=== PATIENT | female | born 1995 | race Caucasian/White ===

== ENCOUNTER → 2016-09-10 | Outpatient (CLI) | payer BC ==
--- NOTE | 2016-09-10 19:28 | CONS ---
DATE OF CONSULTATION: 09/10/2016 CONSULTATION/NEW PATIENT EVALUATION A 20-year-old lady who has been evaluated in the Sleep Center for significant excessive daytime sleepiness, snoring, witnessed episodes of stopped breathing during the sleep. HISTORY OF PRESENT ILLNESS/SLEEP-WAKE EVALUATION: SLEEP SCHEDULE: Patient's usual sleep schedule from around 2:00 a.m. until 1:00 p.m. FALLING ASLEEP: No problem with falling asleep. No TV in bedroom. DURING SLEEP: Patient preferred to sleep on the stomach position. She has snoring, witnessed episodes of stopped breathing during the sleep. About 2 years ago patient was diagnosed with obstructive sleep apnea, was recommended to use CPAP but because difficulties related to the mask she took mask off and basically did not use CPAP for more than one year. DURING THE DAY/WAKE STATE: Presently, she wakes up from sleep with a dry mouth, sleeptalking, in the morning she wakes up tired, has difficulties to pay attention, falling asleep during the day, has problems with memory, concentration, and irritability, depression, anxiety. If she takes naps she could see dreams during the naps. Positive history of muscle weakness as a reaction on strong laughing. Patient increased her weight around 40 pounds since previous testing about 2 years ago. Daniel Sleepiness Scale is in very high range, 19. PAST MEDICAL HISTORY: Positive for allergy, asthma. PAST SURGICAL HISTORY: Adenoidectomy. MEDICATIONS: Zantac, Flovent, ProAir. SOCIAL HISTORY: Negative for smoking. Alcohol consumption is very rarely. FAMILY HISTORY: Hypertension, heart problems, stroke, fibromyalgia, arthritis, asthma, sleep apnea, snoring, headaches, cancer, insomnia, diabetes, acid reflux, nasal polyps, mental illness, restless legs. REVIEW OF SYSTEMS: Patient a long sleeper, has to sleep around 11 to 12 hours and still feels tired and sleepy during the day. No fevers. No double vision. No recent chest pain. No shortness of breath. No abdominal pain. No bleeding episodes. No blood in urine. No seizure episodes. PHYSICAL EXAMINATION: GENERAL: During physical exam a 20-year-old lady without distress. VITAL SIGNS: BP 112/72, HR 82, RR 16. Height 65-1/2, weight 224.6. BMI 36.7. Neck 16 inches in circumference. Temp is 99.1. Oxygen saturation at room air 100%. HEENT: PERRLA, EOMI. Evaluation of oropharynx showed moderately low position of soft palate, big tonsils, significant restriction of nasal breathing on the left side. NECK: Supple. No JVD. Thyroid is not palpable. LUNGS: Clear to percussion and to auscultation. Good air exchange. No wheezing or rhonchi. HEART: S1, S2 regular. No murmurs, gallops or rubs. ABDOMEN: Obese. Soft and nontender. Bowel sounds are present. No organomegaly appreciated. EXTREMITIES: No clubbing or cyanosis. EXTENSION EDGER: Awake, alert, and oriented x3. Cranial nerves 2 to 7 intact. There is no fasciculation or atrophy noted. No focal deficits observed. IMPRESSION: 1. Snoring, witnessed episodes of stopped breathing during sleep. History of obstructive sleep apnea in the past, big tonsils, obstructive sleep apnea/hypopnea syndrome. 2. Significant sleepiness. Daniel Sleepiness Scale increased to 12. Patient sleeps for 11 or 12 hours per night, positive history of cataplexy, positive history of dreaming during naps. In differential diagnoses include idiopathic hypersomnia and narcolepsy. 3. Sleep delay syndrome. 4. Allergy. 5. Asthma. 6. Status post adenoidectomy. PLAN: 1. Polysomnography for evaluation of patient's breathing during sleep. 2. CPAP/BiPAP titration if sleep study confirms obstructive sleep apnea-hypopnea syndrome. 3. Preferable position during sleep on the side. 4. No driving if patient feels any sleepiness. Patient is aware of civil and criminal liability for unsafe driving. 5. I will see patient for follow-up visit to explain results of the testing and following plan. 6. After patient's respiratory abnormalities are under control, she may need multiple sleep latency test if she continues to have symptoms of excessive daytime sleepiness for diagnosis of hypersomnia. 7. Will try to get results of previous sleep studies which patient had about 2 years ago. Thank you very much for referring this patient for consultation. Sincerely, Colton Moscoso MD, PhD, FAASM. Diplomat of [place] [employer], Sleep Medicine Board by [place] [employer] [place] [employer] Shoe Associate of [facility] [place]
== END | disposition home or self-care (01) ==
LOC: SLEEP 14:33
PROVIDERS: ATTEND Internal Medicine
DX: G47.33 Obstructive sleep apnea (adult) (pediatric) (principal); G47.411 Narcolepsy with cataplexy; G47.10 Hypersomnia, unspecified; G47.21 Circadian rhythm sleep disorder, delayed sleep phase type; Z91.09 Other allergy status, other than to drugs and biological substances; J45.909 Unspecified asthma, uncomplicated; Z98.890 Other specified postprocedural states; Z79.899 Other long term (current) drug therapy
CPT/HCPCS: 99211

== ENCOUNTER → 2016-12-17 | Outpatient (CLI) | payer BC ==
--- NOTE | 2016-12-17 15:21 | PN ---
DATE OF SERVICE: 12/17/2016 A 21-year-old lady who has been followed in the Sleep Center to discuss results of polysomnogram. I discussed results of polysomnogram with the patient in detail. Total apnea-hypopnea index is 3.4 with lowest oxygen level 90.0%. Apnea-hypopnea index in REM sleep 5.9. EMG showed 30.5 periodic limb movements per hour but with only 1.6 microarousals per hour. Patient admitted that she is kicking at night and sometimes she calls words out. She has positive history of plasma donation, and her menstrual periods sometimes heavy which indicates possibility of losing blood and subsequently iron, which may increase risk for periodic limb movements. Patient continued to have symptoms of excessive daytime sleepiness. [place] Sleepiness Scale is 15. Patient has positive history of hypnagogical hallucinations or cataplexy which indicates possibility of narcolepsy. Present medications are Zantac, Flovent, ProAir. During physical exam, patient in no distress. BP 119/61, HR 86, RR 12. Temperature 98.1. Oxygen saturation at room air 97%. OROPHARYNX: Moderately low position of soft palate. . NECK: Supple. No JVD, Thyroid is not palpable. LUNGS: Clear to percussion and to auscultation. Good air exchange. No wheezing or rhonchi. HEART: S1, S2 regular. No murmurs, gallops, or rubs. ABDOMEN: Soft and nontender. Bowel sounds are present. No organomegaly appreciated. FOAM CASTER: Awake, alert, and oriented x3. Cranial nerves 2 to 7 intact. There is no fasciculation or atrophy noted. No focal deficits observed. IMPRESSION: 1. No significant respiratory abnormalities during the sleep following today's criteria with 4% oxygen desaturation criteria scoring for hypopneas. 2. Mild periodic limb movements have been documented during the sleep study. 3. Patient continued to have symptoms of significant excessive daytime sleepiness with positive history of hypnagogical hallucinations and possible cataplexy. 4. Asthma. 5. Allergies. 6. Status post adenoidectomy. 7. Irregular menstrual periods with sometimes heavy blood. 8. Loud snoring has been documented. 9. Obesity; body mass index 36. PLAN: 1. Sleep hygiene with regular time in bed for at least 8-9 hours. 2. Daytime naps permitted. 3. Iron profile, including ferritin level because low level of iron may increase risk for periodic limb movements. 4. Will try patient on small doses of dopamine for periodic limb movements to evaluate response on that treatment. 5. Will schedule patient for polysomnogram following multiple sleep latency test for objective evaluation for sleepiness for possible narcolepsy. 6. No driving if feeling any sleepiness. 7. Preferable position during the sleep on the side. 8. Watching and losing weight. Thank you very much for allowing me to participate in the management of your patient. Sincerely, Colton Moscoso MD, PhD, FAASM Diplomat of [place] Board [employer] Sleep Medicine, Sleep Medicine Board by [place] [employer] Specialities [employer] Board of Internal Medicine Drapery And Upholstery Measurer of [facility] [place]
== END | disposition home or self-care (01) ==
LOC: SLEEP 10:10
PROVIDERS: ATTEND Internal Medicine
DX: G47.10 Hypersomnia, unspecified (principal); G47.61 Periodic limb movement disorder; J45.909 Unspecified asthma, uncomplicated; N92.6 Irregular menstruation, unspecified; E66.9 Obesity, unspecified; Z68.36 Body mass index [BMI] 36.0-36.9, adult; Z90.89 Acquired absence of other organs; Z79.899 Other long term (current) drug therapy

== ENCOUNTER → 2017-03-04 | Outpatient (CLI) | payer BC ==
--- NOTE | 2017-03-04 23:26 | PN ---
DATE OF SERVICE: 03/04/2017 This patient is a 21-year-old lady who has been followed in the sleep center to discuss results of her sleep study and plan of treatment. I discussed results of the sleep study with the patient in detail. Sleep study did not show any abnormalities of respiration during sleep. Apnea/hypopnea index is 1.9 with lowest oxygen level 86%. EMG did not show significant periodic limb movements. On the following day, multiple sleep test was done and showed extremely short sleep latency; average sleep latency was 2.7 minutes with 1 sleep-onset REM period. That means that the sleep study confirmed pathological sleepiness. [place] Sleepiness Scale today is 18. Patient continues to feel sleepiness during the day. PRESENT MEDICATIONS: 1. Zantac. 2. Flovent. 3. ProAir. During physical exam, patient is in no distress. BP 124/88, HR 97, RR 16, temperature 97.9. Oxygen saturation at room air 98%. HEENT: PERRLA. EOMI. NECK: Supple. No JVD. Thyroid is not palpable. LUNGS: Clear to percussion and to auscultation. Good air exchange. No wheezing or rhonchi. HEART: S1, S2. ABDOMEN: Soft, non-tender. EXTREMITIES: No clubbing or cyanosis. RAW STOCK MACHINE LOADER: Awake, alert and oriented x3. Cranial nerves 2 to 7 intact. There is no fasciculation or atrophy noted. No focal deficits observed. IMPRESSION: 1. No respiratory abnormalities by results of polysomnogram. 2. Pathological sleepiness by results of MSLT with one sleep-onset REM period, most probably an indication of narcolepsy. Patient also has a history of hypnagogic hallucinations and cataplexy. 3. Asthma. 4. Allergies. 5. Status post adenoidectomy. 6. Irregular menstrual periods. 7. Snoring. PLAN: 1. I will start the patient on treatment with modafinil. Dose will be adjusted for correction of patient's sleepiness during the day. 2. Patient has history of cataplexy, but the episodes are very rare, and this does not create any problem for the patient at the present time; no need for treatment at present. 3. HLA profile for narcolepsy. 4. No driving if feeling any sleepiness. 5. I discussed side effects of modafinil with the patient. She should stop medication if there is any question about possible . 6. Sleep hygiene with regular time in bed for at least 8 hours. 7. Daytime naps permitted. Thank you very much for allowing me to participate in the management of your patient. Sincerely, Colton Moscoso MD, PhD, FAASM Diplomat of [place] Board of Sleep Medicine Sleep Medicine Board by [place] [employer] Specialities [place] Board of Internal Medicine Senior Vice President And Chief Information Officer of [facility] [place]
== END | disposition home or self-care (01) ==
LOC: SLEEP 13:19
PROVIDERS: ATTEND Internal Medicine
DX: G47.10 Hypersomnia, unspecified (principal); T78.40XA Allergy, unspecified, initial encounter; J45.909 Unspecified asthma, uncomplicated; R06.83 Snoring; N92.6 Irregular menstruation, unspecified; Z98.890 Other specified postprocedural states

== ENCOUNTER → 2017-05-27 | Outpatient (CLI) | payer BC ==
--- NOTE | 2017-05-27 14:52 | PN ---
PROGRESS NOTE DATE OF SERVICE: 05/27/2017 HISTORY: 21-year-old lady has been followed in the sleep center for treatment of narcolepsy. Patient was recommended to start modafinil, but because of insurance problem, we had to switch it to Adderall. Presently, she is taking Adderall 10 mg in the morning after awakenings around 9:00 a.m. and also around 2:30 pm. With this regimen, she feels okay during the daytime, but in the evening around 7:00 pm she become very sleepy. [place] Sleepiness Scale today is 11, during the previous visit, it was 18. MEDICATIONS: Flovent, ProAir, bupropion, Venlafaxine, control pill . PHYSICAL EXAM: Patient in no distress. BP 116/88, HR 104, RR 16, height 5 feet 6 inches, weight 204, BMI 32.9, temp 98.0, oxygen saturation room air 99. HEENT PERRLA, EOMI, evaluation of oropharynx showed tongue protrudes midline. Moderately low to normal position of the soft palate. Neck Supple, no JVD. Thyroid is not palpable. LUNGS Clear to percussion and to auscultation. Good air exchange. No wheezing or rhonchi. HEART S1, S2 regular. No murmurs, gallops, or rubs. ABDOMEN: Slightly obese. Soft and nontender. Bowel sounds are present. No organomegaly appreciated. EXTREMITIES No clubbing or cyanosis. REDIPPER Awake, alert, and oriented X3. Cranial nerves 2 to 7 intact. There is no fasciculation or atrophy. noted. No focal deficits observed. IMPRESSION: 1. Narcolepsy by results of MSLT. Mean sleep latency 2.7 minutes with 1 sleep onset REM period. The daytime sleepiness significantly decreased on treatment with Adderall. The patient still has sleepiness in the evening. 2. Asthma. 3. Allergies. 4. Status post adenoidectomy. 5. Snoring. 6. Depression. 7. Anxiety. PLAN: 1. I will increase dose of Adderall to additional tablets 10 mg subsequently patient will take 1 tablet at 9:00 am, 1 tablet at 1:00 p.m. and 1 tablet at 5:00 pm. 2. Sleep hygiene with time in bed for at least 8 hours. 3. No driving if feeling sleepiness. 4. Daytime naps permitted. Thank you very much for allowing me to participate in management of your patient. Sincerely, Colton Moscoso MD, PhD, FAASM Diplomat of [place] [employer] Specialties [employer] Board of Internal Medicine Senior Clinical Consultant of [facility] Mitt[place] MMISABEL / JUAN DIEGO: [id number] /
== END ==
LOC: SLEEP 13:33
PROVIDERS: ATTEND Internal Medicine
DX: G47.419 Narcolepsy without cataplexy (principal); J45.909 Unspecified asthma, uncomplicated; F41.9 Anxiety disorder, unspecified; F32.9 Major depressive disorder, single episode, unspecified; Z90.89 Acquired absence of other organs; Z79.899 Other long term (current) drug therapy

== ENCOUNTER 2017-06-07 20:48 | Emergency (ER) | payer BC ==
[2017-06-07 21:04] VITALS: BP 137/78; PULSE 100; RESP 20; TEMP 97.4
[2017-06-07] MEDS ORDERED: diphenhydrAMINE 25 MG CAP PO STA (21:16)
[2017-06-07] MEDS ORDERED: predniSONE 50 MG TAB PO STA (21:16)
--- NOTE | 2017-06-07 21:33 | ED ---
Allergic Reaction HPI - General Chief complaint: Allergic Reaction Stated complaint: allergic reaction/food Time Seen by Provider: 06/07/17 21:05 Source: patient, family, RN notes reviewed Mode of arrival: ambulatory Limitations: no limitations - History of Present Illness Initial Comments: This is a 21-year-old female who presents to the emergency department with chief complaint of allergic reaction. Patient states that she believes she has an allergy to milk and milk products however has not been formally tested. Patient states that at approximately 8 PM this evening she ate a bag of Chex mix. She developed some labored breathing, reviewed the ingredients on the Chex mix bag and noticed that milk was in an ingredient. Currently patient states that her breathing has improved. She states she does not feel like her throat is closing up. She also complains of some mild nausea. Denies fever, chills, chest pain, abdominal pain, vomiting, constipation or diarrhea, dysuria or hematuria, numbness or tingling, headache or vision changes. - Related Data Previous Rx's Medication Instructions Recorded predniSONE 20 mg PO DAILY #4 tab 06/07/17 Allergies Allergy/AdvReac Type Severity Reaction Status Date / Time No Known Allergies Allergy Verified 06/07/17 21:04 Review of Systems ROS Statement: Those systems with pertinent positive or pertinent negative responses have been documented in the HPI. ROS Other: All systems not noted in ROS Statement are negative. Past Medical History Additional Past Medical History / Comment(s): narcolepsy, depression, anxiety History of Any Multi-Drug Resistant Organisms: None Reported Past Surgical History: Adenoidectomy Past Psychological History: Anxiety, Depression Smoking Status: Never smoker Past Alcohol Use History: Occasional Past Drug Use History: None Reported General Exam - General Exam Comments Initial Comments: General: Awake and alert, well-developed; in no apparent distress. Patient lying on ED stretcher. Non-labored breathing. HEENT: Head atraumatic, normocephalic. Pupils are equal, round and reactive to light. Extraocular movements intact. Oropharynx moist without erythema or exudate. Neck: Supple. Normal ROM. Cardiovascular: Regular rate and rhythm. No murmurs, rubs or gallops. Chest symmetrical. Respiratory: Lungs clear to auscultation bilaterally. No wheezes, rales or rhonchi. Normal respiratory effort with no use of accessory muscles. Musculoskeletal: Normal ROM, no tenderness bilateral upper and lower extremities. Ambulating normally. Skin: [place], warm and dry without rashes or lesions. Neurological: Alert and oriented x3. CN II-XII grossly intact. Speech is fluent and answers are appropriate. No focal neuro deficits. Psychiatric: Normal mood and affect. No overt signs of depression or anxiety noted. Limitations: no limitations Course Vital Signs 06/07/17 21:00 Temperature 97.4 F L Pulse Rate 100 Respiratory 20 Rate Blood Pressure 137/78 O2 Sat by Pulse 100 Oximetry Medical Decision Making - Medical Decision Making This is a 21-year-old female who presents to the emergency department with chief complaint of allergic reaction. On presentation and at discharge, patient 's vital signs are stable. She has non-labored breathing and is in no acute distress. Patient states she may have an allergy to milk and milk products but was never tested. She states that she ate food that contained milk prior to arrival and developed some labored breathing. While in the emergency department , she received steroids and Benadryl. She reports improvement in her symptoms. Patient will be discharged home with a prescription for steroids. Recommended follow up with her primary care physician in 1-2 days. She is in agreement with plan and voiced understanding. All questions were answered. Disposition Clinical Impression: Allergic reaction Disposition: HOME SELF-CARE Condition: Good Instructions: Food Allergy (ED), General Allergic Reaction (ED) Additional Instructions: Please take medications as prescribed. Please follow up with primary care provider within 1-2 days. Return to emergency department if symptoms should worsen or any concerns arise. Prescriptions: predniSONE 20 mg PO DAILY #4 tab Referrals: Vinod Reyes MD [Primary Care Provider] - 1-2 days Time of Disposition: 21:32
== END 2017-06-07 21:38 | disposition home or self-care (01) ==
LOC: EC 20:48
DX: R06.4 Hyperventilation (principal); T78.1XXA Other adverse food reactions, not elsewhere classified, initial encounter
CPT/HCPCS: 99283; J7512

== ENCOUNTER 2017-06-08 00:05 | Emergency (ER) | payer BC ==
[2017-06-08] MEDS ORDERED: MAG HYDROX/AL HYDROX/SIMETH 30 ML, HYOSCYAMINE ELIXIR 10 ML, CIMETIDINE HCL 300 MG PO STA ×3 (00:27)
[2017-06-08] MEDS ORDERED: ONDANSETRON ODT 4 MG TAB PO STA (00:27)
--- NOTE | 2017-06-08 00:38 | ED ---
General Adult HPI - General Chief complaint: Abdominal Pain Stated complaint: abd pain Time Seen by Provider: 06/08/17 00:21 Source: patient, RN notes reviewed Mode of arrival: ambulatory Limitations: no limitations - History of Present Illness Initial comments: 21-year-old female presents to the emergency department with a chief complaint abdominal pain. She was seen here earlier for some throat irritation and swelling. She states she has undergone pain that time. She is ALLERGIC to soy and dairy she rechecks makes that she believes had this in it. She states that when she got home she had some pain and 1 episode of diarrhea so she thought that she should be seen. She states she normally does have some GI upset when she eats so we are dairy but this had a little bit more pain than normal so she wanted to make sure everything was okay. She states she hasn't had a fever or chills. She states her pain has subsided at this time and she is starting to feel better. Patient just wanted to check that everything was okay. Patient states that she is not currently having any other symptoms at this time. Patient denies any recent fever, chills, shortness of breath, chest pain, back pain, numbness or tingling, dysuria or hematuria, constipation, headaches or visual changes, or any other current symptoms. - Related Data Previous Rx's Medication Instructions Recorded predniSONE 20 mg PO DAILY #4 tab 06/07/17 Allergies Allergy/AdvReac Type Severity Reaction Status Date / Time No Known Allergies Allergy Verified 06/08/17 00:16 Review of Systems ROS Statement: Those systems with pertinent positive or pertinent negative responses have been documented in the HPI. ROS Other: All systems not noted in ROS Statement are negative. Past Medical History Additional Past Medical History / Comment(s): narcolepsy, depression, anxiety History of Any Multi-Drug Resistant Organisms: None Reported Past Surgical History: Adenoidectomy Past Psychological History: Anxiety, Depression Smoking Status: Never smoker Past Alcohol Use History: Occasional Past Drug Use History: None Reported General Exam Limitations: no limitations General appearance: alert, in no apparent distress ENT exam: Present: normal exam, mucous membranes moist Neck exam: Present: normal inspection. Absent: tenderness, meningismus, lymphadenopathy Respiratory exam: Present: normal lung sounds bilaterally. Absent: respiratory distress, wheezes, rales, rhonchi, stridor Cardiovascular Exam: Present: regular rate, normal rhythm, normal heart sounds. Absent: systolic murmur, diastolic murmur, rubs, gallop, clicks GI/Abdominal exam: Present: soft, normal bowel sounds. Absent: distended, tenderness, guarding, rebound, rigid Neurological exam: Present: alert, oriented X3 Psychiatric exam: Present: normal affect, normal mood Skin exam: Present: warm, dry, intact, normal color. Absent: rash Course Vital Signs 06/08/17 00:11 Temperature 98.2 F Pulse Rate 103 H Respiratory 20 Rate Blood Pressure 143/95 O2 Sat by Pulse 97 Oximetry Medical Decision Making - Medical Decision Making 20-year-old female presents for abdominal pain diarrhea following ingestion of soy. This is a typical reaction that she get she just was concerned maybe the steroids were making it worse. At this time abdomen is soft and nontender to palpation. X-rays reviewed and negative. GI cocktail did help symptoms. We discussed continuing medications that she was prescribed. We did discuss return parameters and follow-up and all questions. Patient stated that she understood and she is agreeable with this plan. All questions have been answered. She will be discharged with this time. - Lab Data Lab Results 06/08/17 Range/Units 01:08 Urine HCG, Qual Not Detected (Not Detectd) - Radiology Data Radiology results: report reviewed, image reviewed Disposition Clinical Impression: Allergic reaction, Abdominal pain Disposition: HOME SELF-CARE Condition: Stable Instructions: Abdominal Pain (ED) Additional Instructions: Please use medication as discussed. Please follow up with family doctor if symptoms have not improved over the next two days. Please return to the emergency room if your symptoms increase or worsen or for any other concerns. Referrals: Vinod Reyes MD [Primary Care Provider] - 1-2 days Time of Disposition: 01:42
--- NOTE | 2017-06-08 01:34 | XR ---
EXAMINATION TYPE: XR abdomen 2V DATE OF EXAM: 06/08/2017 COMPARISON: NONE HISTORY: Abdominal pain TECHNIQUE: 3 views FINDINGS: The bowel gas pattern is normal. There is no sign of intestinal obstruction or pneumoperito neum. Fecal pattern is normal. Lung bases are clear. There are no pathologic calcifications. IMPRESSION: Nonacute abdomen.
[2017-06-08 01:49] VITALS: BP 121/65; PULSE 88; RESP 18; TEMP 98.5
== END 2017-06-08 01:49 | disposition home or self-care (01) ==
LOC: EC 00:05
DX: T78.1XXA Other adverse food reactions, not elsewhere classified, initial encounter (principal); R19.7 Diarrhea, unspecified; R10.9 Unspecified abdominal pain
CPT/HCPCS: 74020; 81025; 99284

== ENCOUNTER → 2017-08-12 | Outpatient (CLI) | payer BC ==
--- NOTE | 2017-08-12 16:20 | PN ---
PROGRESS NOTE DATE OF SERVICE: 08/12/2017 21-year-old lady has been followed in Sleep Center for treatment of narcolepsy. Presently, she is on treatment with Adderall 10 mg at 9:00 am, 1:00 p.m. and 5:00 pm. With this regimen, she feels okay in the morning hours but early afternoon hours she still feels tired and significantly sleepy. [place] Sleepiness Scale significantly increased to 15. Other medications: , omeprazole, ibuprofen, famotidine, Flovent, Judy, . PHYSICAL EXAM: GENERAL Patient in no distress. VITAL SIGNS BP 126/88 on the right arm, HR 107, RR 16, height 5 feet 5-1/4, weight 188.8, temp 97.4, oxygen saturation room air 99%. HEENT PERRLA, EOMI, evaluation of oropharynx showed moderately low position of soft palate. NECK Supple, no JVD. Thyroid is not palpable. LUNGS Clear to percussion and to auscultation. Good air exchange. No wheezing or rhonchi. HEART S1, S2 regular. No murmurs, gallops, or rubs. ABDOMEN Slightly obese. Soft and nontender. Bowel sounds are present. No organomegaly appreciated. EXTREMITIES No clubbing or cyanosis. GANG BOSS Awake, alert, and oriented X3. Cranial nerves 2 to 7 intact. There is no fasciculation or atrophy. noted. No focal deficits observed. IMPRESSION: 1. Narcolepsy. Patient improved her alertness on treatment with Adderall, but still has sleepiness in afternoon time. Her heart rate increased to 107 in the office today. 2. Asthma. 3. Allergies. 4. Status post adenoidectomy. 5. Depression. 6. Anxiety. 7. Snoring. PLAN: 1. We will increase the dose of Adderall at 1:00 p.m. to 15-20 mg. Other doses we will continue the same regimen. 2. The patient will continue to check her heart rate and blood pressure. 3. Because of increasing heart rate and continued sleepiness, she could be candidate in the future to add modafinil or armodafinil to the treatment. 4. Sleep hygiene with regular time in bed for at least 8 hours. 5. No driving if feeling sleepiness. Thank you very much for allowing me to participate management of your patient. Sincerely, Colton Moscoso MD, PhD, FAASM Diplomat of [place] [employer] Special[employer] [place] Board of Internal Medicine Paper Gluing Operator of [facility] [place] ADOLFO / JUAN DIEGO: [id number] /
== END | disposition home or self-care (01) ==
LOC: SLEEP 14:14
PROVIDERS: ATTEND Internal Medicine
DX: G47.419 Narcolepsy without cataplexy (principal); R06.83 Snoring; T78.40XD Allergy, unspecified, subsequent encounter; F32.9 Major depressive disorder, single episode, unspecified; F41.9 Anxiety disorder, unspecified; J45.909 Unspecified asthma, uncomplicated; Z79.1 Long term (current) use of non-steroidal anti-inflammatories (NSAID); Z79.899 Other long term (current) drug therapy; Z90.89 Acquired absence of other organs; Z98.890 Other specified postprocedural states

== ENCOUNTER → 2018-01-18 | Outpatient (CLI) | payer BC ==
--- NOTE | 2018-01-19 07:04 | US ---
EXAMINATION TYPE: US pelvic complete DATE OF EXAM: 01/18/2018 COMPARISON: NONE CLINICAL HISTORY: 22-year-old female R10.2 Pelvic and perineal pain. Pain TECHNIQUE: Transabdominal (TA). Date of LMP: 12/29/2017 FINDINGS: EXAM MEASUREMENTS: Uterus: 7.0 x 3.1 x 4.7 cm Endometrial Stripe: 0.8 cm Right Ovary: 3.6 x 1.5 x 1.8 cm Left Ovary: 3.3 x 2.0 x 1.5 cm 1. Uterus: Anteverted wnl 2. Endometrium: wnl 3. Right Ovary: wnl 4. Left Ovary: wnl 5. Bilateral Adnexa: wnl 6. Posterior cul-de-sac: No free fluid IMPRESSION: Unremarkable transabdominal sonographic examination of the pelvis.
== END | disposition home or self-care (01) ==
LOC: RADUSMAIN 17:58
PROVIDERS: ATTEND Family Medicine
DX: R10.2 Pelvic and perineal pain (principal)
CPT/HCPCS: 76856

== ENCOUNTER → 2018-01-20 | Outpatient (CLI) | payer BC ==
--- NOTE | 2018-01-20 16:36 | PN ---
PROGRESS NOTE DATE OF SERVICE: 01/20/2018 This patient is a 22-year-old lady who has been followed in the sleep center for treatment of narcolepsy. At present the patient is on treatment with Adderall 10 mg 3 times a day. With this regimen, she continues to feel sleepiness after noon. We tried to increase her dose in the middle of the day to 20 mg, but for some reason insurance did not cover that. [place] Sleepiness Scale today is 14, which is significantly above normal range. Patient's sleep schedule is from 11 p.m. to 6:30 a.m. OTHER MEDICATIONS: 1. Omeprazole. 2. Ibuprofen. 3. Famotidine. 4. Flovent. 5. Judy. PHYSICAL EXAMINATION: GENERAL A pleasant lady without distress. VITAL SIGNS: BP 116/91, heart rate 100, RR 16, height 5 feet 5-1/4 inches, weight 183.8, BMI 30.2, temperature 98.3, oxygen saturation at room air 100%. HEENT: PERRLA, EOMI. Evaluation of oropharynx showed tongue protrudes midline; low position of soft palate. NECK: Supple. No JVD. Thyroid is not palpable. LUNGS: Clear to percussion and to auscultation. Good air exchange. No wheezing or rhonchi. HEART: S1, S2 regular. No murmurs, gallops or rubs. ABDOMEN: Soft and nontender. Bowel sounds are present. No organomegaly appreciated. EXTREMITIES : No clubbing or cyanosis. SOLAR SALES REP: Awake, alert, and oriented X3. Cranial nerves 2 to 7 intact. There is no fasciculation or atrophy. noted. No focal deficits observed. IMPRESSION: 1. Narcolepsy, improved on treatment with Adderall but not fully normalized. Increased heart rate on Adderall. 2. Asthma. 3. Allergies. 4. Depression. 5. Status post adenoidectomy. 6. History of anxiety. 7. Snoring. PLAN: 1. Patient will continue to take Adderall. 2. Patient will be started on treatment with modafinil. We will adjust dose until getting therapeutic level. 3. Sleep hygiene with regular time in bed for at least 8 hours. 4. No driving if feeling any sleepiness. 5. Daytime naps permitted. Thank you very much for allowing me to participate in the management of your patient. Sincerely, Colton Moscoso MD, PhD, FAASM Diplomat of [employer] Juvenile Justice Specialist of [facility] [place] MMISABEL / JUAN DIEGO: [id number] /
== END | disposition home or self-care (01) ==
LOC: SLEEP 15:05
PROVIDERS: ATTEND Internal Medicine
DX: G47.419 Narcolepsy without cataplexy (principal); J45.909 Unspecified asthma, uncomplicated; T78.40XA Allergy, unspecified, initial encounter; F32.9 Major depressive disorder, single episode, unspecified; F41.9 Anxiety disorder, unspecified; Z90.89 Acquired absence of other organs; Z79.1 Long term (current) use of non-steroidal anti-inflammatories (NSAID); Z79.899 Other long term (current) drug therapy

== ENCOUNTER → 2018-03-29 | Outpatient (CLI) | payer BC ==
--- NOTE | 2018-03-29 10:30 | US ---
EXAMINATION TYPE: US venous doppler duplex UE RT DATE OF EXAM: 03/29/2018 COMPARISON: NONE CLINICAL HISTORY: I82.621 Acute embolism and thrombosis of deep vein. Right arm pain and bruising SIDE PERFORMED: Right Grayscale, color doppler, spectral doppler imaging performed of the deep veins of the right upper ext remity. Visualized portions of the right internal jugular vein, subclavian vein, axillary vein, brach ial veins, basilic vein, cephalic vein, ulnar and radial veins are compressible and show no abnormal luminal echo, there is color flow present. Right Arm: Negative for DVT No abnormality visualized at the patient's area of pain . There is normal flow, compressibility and vascular waveforms. IMPRESSION: No evident deep venous thrombosis of the right upper extremity.
[2018-03-29 10:55] LABS: Basophils % (A) 1 %; Eosinophils # (A) 0.2 k/uL (0-0.7); Eosinophils % (A) 4 %; HCT 43.4 % (34.0-46.0); Lymphocytes # (A) 1.5 k/uL (1.0-4.8); Lymphocytes % (A) 30 %; MCH 31.1 pg (25.0-35.0); MCHC 32.2 g/dL (31.0-37.0); MCV 96.7 fL (80.0-100.0); Mean Platelet Volume 6.7; Monocytes # (A) 0.2 k/uL (0-1.0); Monocytes % (A) 4 %; Neutrophils # (A) 2.9 k/uL (1.3-7.7); Neutrophils % (A) 60 %; Platelet Count 283 k/uL (150-450); RBC 4.48 m/uL (3.80-5.40); RDW 12.6 % (11.5-15.5); WBC 4.9 k/uL (3.8-10.6)
== END | disposition home or self-care (01) ==
LOC: RADUSWWP 09:30
PROVIDERS: ATTEND Family Medicine
DX: I82.621 Acute embolism and thrombosis of deep veins of right upper extremity (principal)
CPT/HCPCS: 85025; 85379

== ENCOUNTER → 2018-04-28 | Outpatient (CLI) | payer BC ==
--- NOTE | 2018-04-28 12:36 | SFUN ---
SLEEP CENTER FOLLOW UP NOTE DATE OF SERVICE: 04/28/2018 This 22-year-old lady has been followed in the sleep center for treatment of narcolepsy. Presently, she is on Adderall 10 mg 3 times a day, but still feels sleepy with medication. After taking medication in the first couple hours, she feels better, but then she started to develop sleepiness again. [place] Sleepiness Scale today is 17. Her usual sleep schedule from around 11 p.m. until 6:30 a.m. MEDICATIONS: Adderall, omeprazole, ibuprofen, famotidine, Flovent, Judy PHYSICAL EXAMINATION: During physical exam, patient in no distress. VITAL SIGNS: BP 136/89, HR around 100, RR 16, height 5 feet 5-1/2 inches, weight 193.8, body mass index 31.6, temperature 98.4, oxygen saturation on room air 100%. HEENT: PERRLA, EOMI,. Oropharynx slightly low position of soft palate NECK: Supple, no JVD. Thyroid is not palpable. LUNGS: Clear to percussion and to auscultation. Good air exchange. No wheezing or rhonchi. HEART: S1, S2 regular. No murmurs, gallops, or rubs. ABDOMEN: Soft and nontender. Bowel sounds are present. No organomegaly appreciated. EXTREMITIES: No clubbing or cyanosis. TRAIN ELECTRONIC TECHNICIAN: Awake, alert, and oriented X3. Cranial nerves 2 to 7 intact. There is no fasciculation or atrophy. noted. No focal deficits observed. IMPRESSION: 1. Narcolepsy with cataplexy. Patient has reaction motion with weakness in her hands, improved but not fully normalized on treatment with Adderall. 2. Asthma. 3. Allergy. 4. Depression. 5. Status post adenoidectomy. 6. History of anxiety. 7. Snoring. PLAN: 1. We will change Adderall from a regular instant release medication to extended release medication with the same dose 2. 2. Patient will continue to take medication 10 mg at 7 a.m., noon and 4 p.m. 3. Sleep hygiene with regular time in bed for at least 7-1/2 hours. 4. No driving if feeling any sleepiness. 5. Daytime naps permitted. Thank you very much for allowing me to participate in management of your patient. Sincerely, Colton Moscoso MD, PhD, FAASM Diplomat of [employer] Board of Internal Medicine L Tacker of [facility] [place] MMISABEL / JUAN DIEGO: [id number] /
== END ==
LOC: SLEEP 10:29
PROVIDERS: ATTEND Internal Medicine
DX: G47.419 Narcolepsy without cataplexy (principal); J45.909 Unspecified asthma, uncomplicated; F32.9 Major depressive disorder, single episode, unspecified; F41.9 Anxiety disorder, unspecified; Z90.89 Acquired absence of other organs; Z79.899 Other long term (current) drug therapy; Z88.9 Allergy status to unspecified drugs, medicaments and biological substances; Z79.1 Long term (current) use of non-steroidal anti-inflammatories (NSAID)

== ENCOUNTER → 2018-07-21 | Outpatient (CLI) | payer BC ==
--- NOTE | 2018-07-21 11:37 | SFUN ---
SLEEP CENTER FOLLOW UP NOTE DATE OF SERVICE: 07/21/2018 A 22-year-old lady who has been followed in the Sleep Center for treatment of narcolepsy. Presently she is on treatment with Adderall XR 10 mg b.i.d. With this regimen, she feels better than with the regular Adderall but still feels sleepiness during the day. [place] Sleepiness Scale today increased to 16. Her usual sleep schedule from around 11 p.m. to 6:30 am. MEDICATIONS: Adderall, omeprazole, Ibuprofen, Famotidine, Flovent, Judy. PHYSICAL EXAM: Patient in no distress, BP 125/88, HR 104, RR 16, height 5, 6, weight 210.6, body mass index 33.8. Patient increased her weight since previous visit on around 17 pounds, temperature 98.7, oxygen saturation at room air 99%. OROPHARYNX: Slightly low position. Neck Supple, no JVD. Thyroid is not palpable. LUNGS Clear to percussion and to auscultation. Good air exchange. No wheezing or rhonchi. HEART S1, S2 regular. No murmurs, gallops, or rubs. ABDOMEN Soft and nontender. Bowel sounds are present. No organomegaly appreciated. EXTREMITIES No clubbing or cyanosis. MANAGER FINE Awake, alert, and oriented X3. Cranial nerves 2 to 7 intact. There is no fasciculation or atrophy. noted. No focal deficits observed. IMPRESSION: 1. Narcolepsy with cataplexy, no clinical problems now related to cataplexy. 2. Asthma. 3. Allergy. 4. History of depression. 5. Status post adenoidectomy. 6. History of anxiety. 7. Snoring. PLAN: 1. Will increase Adderall XR to 15 mg b.i.d. She will take it at 7 am and 2 pm. 2. Sleep hygiene with regular time in bed for at least 8 hours. 3. Daytime naps permitted. 4. No driving if feeling sleepiness. 5. Watching weight. Thank you very much for allowing me to participate in the management of your patient. Sincerely, Colton Moscoso MD, PhD, FAASM Diplomat of [employer]ties [employer] Board of Internal Medicine Electric Drill Operator of [facility] [place] MMODL / IJN: [id number] /
== END | disposition home or self-care (01) ==
LOC: SLEEP 10:16
PROVIDERS: ATTEND Internal Medicine
DX: G47.411 Narcolepsy with cataplexy (principal); J45.909 Unspecified asthma, uncomplicated; T78.40XA Allergy, unspecified, initial encounter; R06.83 Snoring; Z86.69 Personal history of other diseases of the nervous system and sense organs; Z98.890 Other specified postprocedural states; Z79.899 Other long term (current) drug therapy

== ENCOUNTER → 2019-02-23 | Outpatient (CLI) | payer BC ==
--- NOTE | 2019-02-23 20:43 | PN ---
PROGRESS NOTE DATE OF SERVICE: 02/23/2019 This patient is a 23-year-old lady who has been followed in the sleep center for treatment of narcolepsy. At present she is on treatment with Adderall XR 15 mg b.i.d. With the dose of Adderall, she continues to have significant sleepiness. With that dose, she recently developed a feeling of increasing heart rate and episodes of palpitation and some discomfort feeling in her throat. [place] Sleepiness Scale today is 18, which is high, indicating sleepiness. Her sleep schedule is from around 11 p.m. to 6:30 a.m. MEDICATIONS: 1. Adderall. 2. Omeprazole. 3. Ibuprofen. 4. Famotidine. 5. Flovent. 6. Judy. 7. Venlafaxine. 8. . 9. Montelukast. 10.Pulmicort. 11.Marlissa. 12.Fluticasone. PHYSICAL EXAMINATION: GENERAL: A pleasant patient in no distress. VITAL SIGNS: BP 118/82, HR 100, RR 16, height 5 feet 6 inches, weight 219 pounds. Patient's weight has increased by 9 pounds since her previous visit. Body mass index 35.3, temperature 97.8, oxygen saturation at room air 99%. HEENT: PERRLA, EOMI. Evaluation of oropharynx showed tongue protrudes midline. Slightly low position of soft palate. NECK: Supple. No JVD. Thyroid is not palpable. LUNGS: Clear to percussion and to auscultation. Good air exchange. No wheezing or rhonchi. HEART: S1, S2 regular. No murmurs, gallops or rubs. ABDOMEN: Soft and nontender. Bowel sounds are present. No organomegaly. EXTREMITIES: No clubbing or cyanosis. DBA DEVELOPER: Awake, alert, and oriented X3. Cranial nerves 2 to 7 intact. There is no fasciculation or atrophy. noted. No focal deficits observed. IMPRESSION: 1. Narcolepsy with cataplexy. Clinically no significant problems related to cataplexy. 2. Asthma. 3. Allergies. 4. History of depression. 5. Status post adenoidectomy. 6. History of anxiety. 7. Snoring. PLAN: 1. I will start the patient on treatment with modafinil with the goal to replace Adderall or significantly decrease the dose of Adderall. A combination of Adderall with venlafaxine, I also believe, may be the reason for increasing heart rate. 2. Sleep hygiene with regular time in bed for at least 8 hours. 3. Precautions related to driving. No driving if feeling any sleepiness. 4. Daytime naps permitted. 5. Watching and losing weight. Thank you very much for allowing me to participate in the management of your patient. Sincerely, Colton Moscoso MD, PhD, FAASM Diplomat of [employer] Specialties [employer] Board of Internal Medicine Programming Engineer of [facility] [place] MMODL / IJN: [id number] /
== END ==
LOC: SLEEP 15:23
PROVIDERS: ATTEND Internal Medicine
DX: G47.411 Narcolepsy with cataplexy (principal); J45.909 Unspecified asthma, uncomplicated; Z90.89 Acquired absence of other organs; F41.8 Other specified anxiety disorders; Z79.899 Other long term (current) drug therapy; Z79.1 Long term (current) use of non-steroidal anti-inflammatories (NSAID)

== ENCOUNTER → 2019-05-18 | Outpatient (CLI) | payer BC ==
--- NOTE | 2019-05-18 18:46 | PN ---
PROGRESS NOTE DATE OF SERVICE: 05/18/2019. 23-year-old lady who has been followed in Sleep Center for treatment of narcolepsy. Presently patient is on modafinil 400 mg in the morning and Adderall XR 15 mg usually in the afternoon. With this regimen, she does not experience significant increasing of her heart rate as she has experienced before only one Adderall but she still feels some sleepiness during the day. [place] Sleepiness Scale today 15. Her sleep schedule is without changes from around 11 p.m. to 6:30 a.m. She is taking afternoon naps. MEDICATIONS: Include omeprazole, famotidine, Flovent, Judy, Venlafaxine, montelukast, Pulmicort, Marlissa, fluticasone, Sucralfate, . PHYSICAL EXAM: Patient in no distress. BP 116/84, HR 94, RR 16, height 5 feet 5.5 Inches, weight 221.4. Body max index 36.2, temperature 98.2, oxygen saturation on room air 98%. Oropharynx slightly low position of soft palate. NECK: Supple, no JVD. Thyroid is not palpable. LUNGS: Clear to percussion and to auscultation. Good air exchange. No wheezing or rhonchi. HEART: S1, S2 regular. No murmurs, gallops, or rubs. ABDOMEN: Soft and nontender. Bowel sounds are present. No organomegaly appreciated. EXTREMITIES: No clubbing or cyanosis. TILE APPLICATOR: Awake, alert, and oriented X3. Cranial nerves 2 to 7 intact. There is no fasciculation or atrophy. noted. No focal deficits observed. IMPRESSION: 1. Narcolepsy with cataplexy. Clinically no significant problem presently related to cataplexy. 2. Asthma. 3. Allergy. 4. History of depression. 5. Status post adenoidectomy. 6. History of anxiety. 7. Snoring. PLAN: 1. Patient will continue on modafinil 400 mg in the morning with Adderall XR 15 mg if necessary afternoon. 2. Patient will start new medication Sunnosi with dose 75 mg a day and then she will increase it to 150 mg a day. 3. Sleep hygiene with regular time in bed for at least 8 hours. 4. Continue short time naps. 5. Extreme precautions to driving. No driving if feeling sleepiness. Thank you very much for allowing me to participate in the management of your patient. Sincerely, Colton Moscoso MD, PhD, FAASM Diplomat of [employer] Specialties Mexican Board of Internal Medicine Claim Taker of [facility] [place] MMISABEL / SANDRAN: [id number] /
== END | disposition home or self-care (01) ==
LOC: SLEEP 15:47
PROVIDERS: ATTEND Internal Medicine
DX: G47.419 Narcolepsy without cataplexy (principal); J45.909 Unspecified asthma, uncomplicated; R06.83 Snoring; Z86.59 Personal history of other mental and behavioral disorders; T78.40XA Allergy, unspecified, initial encounter; Z90.89 Acquired absence of other organs; Z79.899 Other long term (current) drug therapy

== ENCOUNTER 2019-07-07 08:13 | Day surgery (SDC) | payer BC ==
[2019-06-29 13:22] VITALS: BMI 35.5
[~2019-07-07 08:13] MED LIST: LACTATED RINGERS 1,000 ML IV SCH; LIDOCAINE 1% 20 ML VIAL (10MG/ML) FOR IV START INTRADERMA PRN
[2019-07-07 08:35] VITALS: RESP 16; TEMP 97.6
[2019-07-07] MEDS ORDERED: PROPOFOL 10 MG/ML 20 ML VIAL IV ONE (09:54)
--- NOTE | 2019-07-07 10:07 | P.PCN ---
Date of Procedure: 07/07/19 Procedure(s) Performed: BRIEF HISTORY: Patient is a 23-year-old, pleasant, female, scheduled for an upper endoscopy as a part of a transient long-standing history of GERD of and years duration. Presently on Prilosec 20 mg daily, Pepcid and Carafate with some relief in her symptoms. She is scheduled for an upper endoscopy to rule out complicated reflux. PROCEDURE PERFORMED: Esophagogastroduodenoscopy with biopsy. PREOPERATIVE DIAGNOSIS: Long standing history of GERD. IV sedation per anesthesia. PROCEDURE: After informed consent was obtained, the patient was brought into the endoscopy unit. IV sedation was administered by Anesthesia under continuous monitoring. Initially the Olympus GIF-140 video endoscope was inserted into the mouth. Esophagus intubated without any difficulty. It was gradually advanced into the stomach and duodenum and carefully examined. The bulb and the second part of the duodenum appeared normal. The scope at this time was withdrawn to the stomach, adequately insufflated with air, and upon careful examination, mucosa of the antrum had scattered erosions and biopsies were done from this area. The, body, cardia and the fundus appeared normal. The scope was then withdrawn into the esophagus. Small sliding type hiatal hernia noted. The GE junction was located at 39 cm from the incisors. The esophagus appeared normal. There were no erosions or ulcerations seen, biopsies were done from the distal esophagus and the patient tolerated the procedure well. IMPRESSION: 1. Small sliding Hiatal hernia. 2. Antral erosive gastritis. RECOMMENDATIONS: The findings of this examination were discussed with the patient as well as a family. She will follow with the biopsy results. She was advised to continue with Prilosec 20 mg daily as well as famotidine on a daily basis. She was briefly educated about antireflux measures.
[2019-07-07 10:42] VITALS: BP 124/80; PULSE 83
== END 2019-07-07 11:15 | disposition home or self-care (01) ==
LOC: ORWHC2ENDO 08:13
PROVIDERS: ATTEND Internal Medicine Gastroenterology
DX: K29.50 Unspecified chronic gastritis without bleeding (principal); K21.0 Gastro-esophageal reflux disease with esophagitis; K25.9 Gastric ulcer, unspecified as acute or chronic, without hemorrhage or perforation; K44.9 Diaphragmatic hernia without obstruction or gangrene; J45.909 Unspecified asthma, uncomplicated; F32.9 Major depressive disorder, single episode, unspecified; Z79.51 Long term (current) use of inhaled steroids; Z79.899 Other long term (current) drug therapy; Z90.89 Acquired absence of other organs
CPT/HCPCS: 81025; 88305; 43239; J2704

== ENCOUNTER 2020-12-10 00:12 | Emergency (ER) | payer BC, OTHER ==
[2020-12-10 00:22] VITALS: TEMP 98.2
[2020-12-10] MEDS ORDERED: MORPHINE SULFATE 4 MG/ML SYRINGE IV STA (00:39)
[2020-12-10] MEDS ORDERED: diphenhydrAMINE 50 MG/ML 1 ML VIAL IVP STA (00:39)
[2020-12-10] MEDS ORDERED: SODIUM CHLORIDE 0.9% 1,000 ML IV STA (00:39)
[2020-12-10] MEDS ORDERED: ONDANSETRON 4 MG/2 ML VIAL IVP STA (00:39)
--- NOTE | 2020-12-10 00:54 | ED ---
Headache HPI - General Chief Complaint: Headache Stated Complaint: Dehydrated Time Seen by Provider: 12/10/20 00:23 Source: RN notes reviewed Mode of arrival: ambulatory Limitations: no limitations - History of Present Illness Initial Comments: Patient is a 25-year-old female that presents to the emergency department complaining of headache with pressure above her eyes. She notes that this is been going on for approximately one to 2 days. She notes that she has vomited approximate 4 times, and that she has photophobia as light makes the headache w orse. She denied any history of migraines or headaches. She did note that she has seasonal ALLERGIES that causes sinus congestion. She does note that she had some pressure over her maxillary sinuses earlier today. She noted that most the pressures in the area of her frontal sinuses. She was in no apparent distress or pain while sitting up in bed during exam and interview. He noted that her p ain was approximately 6-7 out of 10 with no relief from any Tylenol. She denied any chest pain shortness breath headache constipation diarrhea fever fatigue chills lightheadedness dizziness. - Related Data Home Medications Medication Instructions Recorded Confirmed Budesonide [Pulmicort Flexhaler] 2 puff INHALATION DAILY 06/29/19 07/07/19 Cholecalciferol [Vitamin D3 (25 5,000 units PO DAILY 06/29/19 07/07/19 Mcg = 1000 Iu)] Famotidine 40 mg PO DAILY 06/29/19 07/07/19 Glycopyrrolate [Robinul] 1 mg PO BID 06/29/19 07/07/19 Marlissa 0.15 mg PO DAILY 06/29/19 07/07/19 Montelukast [Singulair] 10 mg PO DAILY 06/29/19 07/07/19 Omeprazole 20 mg PO DAILY 06/29/19 07/07/19 Solriamfetol HCl [Sunosi] 150 mg PO DAILY 06/29/19 07/07/19 Sucralfate [Carafate] 1 gm PO ACHS 06/29/19 07/07/19 Venlafaxine HCl ER [Effexor Xr] 150 mg PO DAILY 06/29/19 07/07/19 buPROPion HCL [Wellbutrin XL] 150 mg PO DAILY 06/29/19 07/07/19 Allergies Allergy/AdvReac Type Severity Reaction Status Date / Time No Known Allergies Allergy Verified 06/29/19 13:10 Review of Systems ROS Statement: Those systems with pertinent positive or pertinent negative responses have been documented in the HPI. ROS Other: All systems not noted in ROS Statement are negative. Past Medical History Past Medical History: Asthma, GERD/Reflux Additional Past Medical History / Comment(s): narcolepsy History of Any Multi-Drug Resistant Organisms: None Reported Past Surgical History: Adenoidectomy Past Anesthesia/Blood Transfusion Reactions: Motion Sickness Past Psychological History: Anxiety, Depression Smoking Status: Never smoker Past Alcohol Use History: Occasional Past Drug Use History: Marijuana - Past Family History Father Family Medical History: Cancer Additional Family Medical History / Comment(s): brain cancer General Exam Limitations: no limitations General appearance: alert, in no apparent distress Head exam: Present: atraumatic, normocephalic, normal inspection Eye exam: Present: normal appearance, PERRL, EOMI. Absent: scleral icterus, conjunctival injection, periorbital swelling Neck exam: Present: normal inspection Respiratory exam: Present: normal lung sounds bilaterally. Absent: respiratory distress, wheezes, rales, rhonchi, stridor Cardiovascular Exam: Present: regular rate, normal rhythm, normal heart sounds. Absent: systolic murmur, diastolic murmur, rubs, gallop, clicks GI/Abdominal exam: Present: soft, normal bowel sounds. Absent: distended, tenderness, guarding, rebound, rigid Extremities exam: Present: normal inspection, full ROM, normal capillary refill. Absent: tenderness, pedal edema, joint swelling, calf tenderness Neurological exam: Present: alert, oriented X3, CN II-XII intact Psychiatric exam: Present: normal affect, normal mood Skin exam: Present: warm, dry, intact, normal color. Absent: rash Course Vital Signs 12/10/20 00:16 Temperature 98.2 F Pulse Rate 97 Respiratory 18 Rate Blood Pressure 131/85 O2 Sat by Pulse 99 Oximetry Medical Decision Making - Medical Decision Making 25-year-old female complaining of headache 2 days with some nausea and vomitin g. CBC, CMP, UA, 50 mg of Benadryl, 4 mg Zofran, 4 mg of morphine, 1 L normal saline ordered. Labs unremarkable. Patient states she is feeling better after fluids and some medication. She would like some Tylenol 3 to go home with until she can follow up with her primary care. Case discussed with Dr. Dickey, patient can discharge home with follow-up to primary care. Patient was discharged in stable condition. patient states that she is ready to go home. - Lab Data Result diagrams: 12/10/20 00:53 12/10/20 00:53 Lab Results 12/10/20 12/10/20 Range/Units 00:53 00:53 WBC 9.2 (3.8-10.6) k/uL RBC 4.55 (3.80-5.40) m/uL Hgb 13.9 (11.4-16.0) gm/dL Hct 41.7 (34.0-46.0) % MCV 91.5 (80.0-100.0) fL MCH 30.5 (25.0-35.0) pg MCHC 33.3 (31.0-37.0) g/dL RDW 13.0 (11.5-15.5) % Plt Count 328 (150-450) k/uL MPV 6.6 Neutrophils % 63 % Lymphocytes % 26 % Monocytes % 5 % Eosinophils % 5 % Basophils % 0 % Neutrophils # 5.8 (1.3-7.7) k/uL Lymphocytes # 2.4 (1.0-4.8) k/uL Monocytes # 0.4 (0-1.0) k/uL Eosinophils # 0.5 (0-0.7) k/uL Basophils # 0.0 (0-0.2) k/uL Sodium 141 (137-145) mmol/L Potassium 4.1 (3.5-5.1) mmol/L Chloride 104 (98-107) mmol/L Carbon Dioxide 31 H (22-30) mmol/L Anion Gap 6 mmol/L BUN 11 (7-17) mg/dL Creatinine 0.71 (0.52-1.04) mg/dL Est GFR (CKD-EPI)AfAm >90 (>60 ml/min/1.73 sqM) Est GFR (CKD-EPI)NonAf >90 (>60 ml/min/1.73 sqM) Glucose 91 (74-99) mg/dL Calcium 9.6 (8.4-10.2) mg/dL Total Bilirubin <0.1 L (0.2-1.3) mg/dL AST 23 (14-36) U/L ALT 15 (4-34) U/L Alkaline Phosphatase 72 (38-126) U/L Total Protein 7.4 (6.3-8.2) g/dL Albumin 4.3 (3.5-5.0) g/dL Disposition Clinical Impression: Migraine headache Disposition: HOME SELF-CARE Condition: Stable Instructions (If sedation given, give patient instructions): Acute Headache (ED) Additional Instructions: Please return to the Emergency Department if symptoms worsen or any other concerns. Take Tylenol 3 as prescribed. Follow-up primary care in next 1-3 days. Increase oral fluids. Is patient prescribed a controlled substance at d/c from ED?: No Referrals: Vinod Reyes MD [Primary Care Provider] - 1-2 days Time of Disposition: 02:08
[2020-12-10 01:15] LABS: Basophils % (A) 0 %; Eosinophils # (A) 0.5 k/uL (0-0.7); Eosinophils % (A) 5 %; HCT 41.7 % (34.0-46.0); HGB 13.9 gm/dL (11.4-16.0); Lymphocytes # (A) 2.4 k/uL (1.0-4.8); Lymphocytes % (A) 26 %; MCH 30.5 pg (25.0-35.0); MCHC 33.3 g/dL (31.0-37.0); MCV 91.5 fL (80.0-100.0); Mean Platelet Volume 6.6; Monocytes # (A) 0.4 k/uL (0-1.0); Monocytes % (A) 5 %; Neutrophils # (A) 5.8 k/uL (1.3-7.7); Neutrophils % (A) 63 %; Platelet Count 328 k/uL (150-450); RBC 4.55 m/uL (3.80-5.40); WBC 9.2 k/uL (3.8-10.6)
[2020-12-10 01:36] LABS: ALT 15 U/L (4-34); AST 23 U/L (14-36); African American GFR (CKD) >90 (>60 ml/min/1.73 sqM); Albumin 4.3 g/dL (3.5-5.0); Alkaline Phosphatase 72 U/L (38-126); Anion Gap 6 mmol/L; Blood Urea Nitrogen 11 mg/dL (7-17); Calcium 9.6 mg/dL (8.4-10.2); Carbon Dioxide 31 mmol/L (22-30); Chloride 104 mmol/L (98-107); Glucose 91 mg/dL (74-99); Non-African American GFR(CKD) >90 (>60 ml/min/1.73 sqM); Potassium 4.1 mmol/L (3.5-5.1); Sodium 141 mmol/L (137-145); Total Bilirubin <0.1 mg/dL (0.2-1.3); Total Protein 7.4 g/dL (6.3-8.2)
[2020-12-10] MEDS ORDERED: ACET/COD 300 MG/30 MG STARTER PACK 6 TAB BTL PO STA (02:07)
[2020-12-10] MEDS ORDERED: ONDANSETRON 4 MG ODT STARTER PACK 2 TAB BTL PO STA (02:42)
[2020-12-10 02:50] VITALS: BP 122/65; PULSE 78; RESP 20
== END 2020-12-10 02:45 | disposition home or self-care (01) ==
LOC: EC 00:12
DX: G43.909 Migraine, unspecified, not intractable, without status migrainosus (principal); J45.909 Unspecified asthma, uncomplicated; F32.9 Major depressive disorder, single episode, unspecified; F12.90 Cannabis use, unspecified, uncomplicated; K21.9 Gastro-esophageal reflux disease without esophagitis
CPT/HCPCS: 80053; 85025; 99284; 96374; 96375 ×2; 96361; J2270; J1200; J2405; S0119

== ENCOUNTER → 2021-03-13 | Outpatient (CLI) | payer OTHER ==
--- NOTE | 2021-03-13 18:54 | SFUN ---
SLEEP CENTER FOLLOW UP NOTE DATE OF SERVICE: 03/13/2021 This 25-year-old lady has been followed in Sleep Center for treatment of narcolepsy. The patient continues to have episodes of sleepiness and episodes of cataplexy, but she is able to manage episodes of cataplexy. That does not make any problems for her. [place] Sleepiness Scale today is significantly increased at 17. MEDICATIONS: 1. Venlafaxine ER 100 mg once a day. 2. Bupropion 100 mg once a day. 3. Omeprazole 20 mg twice a day. 4. Montelukast 10 mg once a day. 5. Asmanex inhaler 270 mcg 2 puffs a day. 6. Fluticasone 50 mcg 2 sprays a day. 7. Vitamin D. PHYSICAL EXAMINATION: GENERAL: Pleasant patient in no distress. VITAL SIGNS: BP 129/93, HR around 100, RR 16, height 5 feet 6 inches, weight 233.8, temperature 96.9, body mass index 37.6, oxygen saturation at room air 99%. HEENT: PERRLA, EOMI, evaluation of oropharynx showed tongue protrudes midline. NECK: Supple, no JVD. Thyroid is not palpable. LUNGS: Clear to percussion and to auscultation. Good air exchange. No wheezing or rhonchi. HEART: S1, S2 regular. No murmurs, gallops, or rubs. ABDOMEN: Soft and nontender. Bowel sounds are present. No organomegaly appreciated. EXTREMITIES: No clubbing or cyanosis. TREE GIRDLER: Awake, alert, and oriented X3. Cranial nerves 2 to 7 intact. There is no fasciculation or atrophy. noted. No focal deficits observed. IMPRESSION: 1. Narcolepsy with cataplexy, type 1. 2. History of snoring. 3. Obesity, body mass index 37.6. Patient's weight increased by 12 pounds since previous visit. 4. Asthma. 5. Allergies. 6. History of depression. 7. History of anxiety. 8. Status post adenoidectomy. PLAN: 1. I patient on treatment with Adderall 10 mg twice a day. 2. Sleep hygiene with regular time in bed for at least 8 hours. 3. Daytime naps permitted. 4. Extreme precautions related to driving. No driving if feeling any sleepiness. Patient promised to follow recommendations. She is aware of civil and criminal liability for unsafe driving. 5. Follow-up visit in one month to evaluate clinical response on treatment with this dose of Adderall and to make any adjustments. Thank you very much for allowing me to participate in the management of your patient. Sincerely, Colton Moscoso MD, PhD, FAASM Diplomat of [employer] Sleep Medicine Board of [employer] Ruffler of [facility] [place] MMODL / JUAN DIEGO: [id number] /
== END ==
LOC: SLEEP 15:12
PROVIDERS: ATTEND Internal Medicine
DX: G47.411 Narcolepsy with cataplexy (principal); E66.9 Obesity, unspecified; J45.909 Unspecified asthma, uncomplicated; F32.9 Major depressive disorder, single episode, unspecified; F41.9 Anxiety disorder, unspecified; Z90.49 Acquired absence of other specified parts of digestive tract; Z68.37 Body mass index [BMI] 37.0-37.9, adult; Z87.09 Personal history of other diseases of the respiratory system

== ENCOUNTER → 2021-04-17 | Outpatient (CLI) | payer OTHER ==
--- NOTE | 2021-04-17 15:25 | SFUN ---
SLEEP CENTER FOLLOW UP NOTE DATE OF SERVICE: 04/17/2021 25-year-old lady has been followed in Sleep Center for treatment of narcolepsy type 1. Presently patient is on treatment with Adderall 10 mg twice a day and with this regimen she feels better. She may control her sleepiness during the day, [place] sleep scale is 11. During the previous visit, before increasing the dose it was 17. MEDICATIONS: 100 mg once a day, bupropion 100 mg once a day, omeprazole 20 mg twice a day, montelukast 10 mg once a day, Asmanex inhaler 270 mcg 2 puffs a day, fluticasone 50 mcg 2 sprays a day. Adderall 10 mg twice a day. PHYSICAL EXAMINATION: GENERAL: Patient in no distress. BP 118/81, HR 89, RR 12, height 5 feet 6 inches, weight 230.6, temperature 96.5, oxygen saturation 98%. Body mass index 36.4. HEENT: PERRLA, EOMI, evaluation of oropharynx showed tongue protrudes midline. NECK: Supple, no JVD. Thyroid is not palpable. LUNGS: Clear to percussion and to auscultation. Good air exchange. No wheezing or rhonchi. HEART: S1, S2 regular. No murmurs, gallops, or rubs. ABDOMEN: Soft and nontender. Bowel sounds are present. No organomegaly appreciated. EXTREMITIES: No clubbing or cyanosis. FLOWER MAKER: Awake, alert, and oriented X3. Cranial nerves 2 to 7 intact. There is no fasciculation or atrophy. noted. No focal deficits observed. IMPRESSION: 1. Narcolepsy type 1, sleepiness on control with Adderall. 2. History of snoring. 3. Obesity. Body mass index 36.4. Patient lost 3 pounds since last visit. 4. Asthma. 5. Allergies. 6. History of depression. 7. History of anxiety. 8. Status post adenoidectomy. PLAN: 1. Patient will continue to take Adderall 10 mg twice a day. 2. Sleep hygiene with regular time in bed for at least 8 hours. 3. Extreme precautions to driving. No driving if feeling sleepiness. Patient promised to follow recommendations. 4. Daytime naps permitted. 5. Follow-up visit in 4 or 5 months. Thank you very much for allowing me to participate in management of your patient. Sincerely, Colton Moscoso MD, PhD, FAASM Diplomat of [place] [employer] Sleep Medicine Board of [place] [employer] Squaring Machine Operator of [facility] [place] ADOLFO / JUAN DIEGO: [id number] / MTDD
== END ==
LOC: SLEEP 14:07
PROVIDERS: ATTEND Internal Medicine
DX: G47.419 Narcolepsy without cataplexy (principal); E66.9 Obesity, unspecified; J45.909 Unspecified asthma, uncomplicated; F32.9 Major depressive disorder, single episode, unspecified; F41.9 Anxiety disorder, unspecified; Z90.49 Acquired absence of other specified parts of digestive tract; Z68.36 Body mass index [BMI] 36.0-36.9, adult

== ENCOUNTER → 2021-10-02 | Outpatient (CLI) | payer OTHER ==
--- NOTE | 2021-10-02 16:07 | SFUN ---
SLEEP CENTER FOLLOW UP NOTE DATE OF SERVICE: 10/02/2021 This 25-year-old lady has been followed in Sleep Center for treatment of narcolepsy. The patient is on treatment with Adderall 10 mg one up to two times a day, and with this regimen her alertness is under control. Today her [place] Sleepiness Scale is 10, which is less than during the previous visit. On the previous visit it was 17. No side effects of the medication. CURRENT MEDICATIONS: 1. Asmanex Twisthaler. 2. Omeprazole 20 mg once a day. 3. Montelukast 10 mg once a day. 4. Bupropion 100 mg once a day. 5. Venlafaxine 18.75 mg once a day. 6. Zyrtec 10 mg once a day. PHYSICAL EXAMINATION: GENERAL: Pleasant patient in no distress. VITAL SIGNS: BP 110/77, HR 80, RR 16, weight 244.6 pounds, height 5 feet 6 inches, temperature 97.2, oxygen saturation at room air 98%. HEENT: PERRLA, EOMI, evaluation of oropharynx showed tongue protrudes midline. NECK: Supple, no JVD. Thyroid is not palpable. LUNGS: Clear to percussion and to auscultation. Good air exchange. No wheezing or rhonchi. HEART: S1, S2 regular. No murmurs, gallops, or rubs. ABDOMEN: Slightly obese. EXTREMITIES: No clubbing or cyanosis. JEWELLERY DESIGNER: Awake, alert, and oriented X3. Cranial nerves 2 to 7 intact. There is no fasciculation or atrophy. noted. No focal deficits observed. IMPRESSION: 1. Narcolepsy, type 1. 2. Obesity. The patient's weight increased by about 14 pounds since previous visit. 3. Asthma. 4. Allergies. 5. History of depression. 6. History of anxiety. 7. Status post adenoidectomy. PLAN: 1. Patient will continue treatment with Adderall 10 mg one to two times a day. 2. Losing weight. If patient's weight continues to increase and her snoring increases, we may consider repeating her sleep study to exclude any obstructive sleep apnea. 3. Precautions related to driving. No driving if feeling any sleepiness. The patient promised to follow recommendations. She is aware of civil and criminal liability for unsafe driving. 4. Daytime naps permitted. 5. Follow-up visit in 6 months or earlier if patient has any problems. Thank you very much for allowing me to participate in the management of your patient. Sincerely, Colton Moscoso MD, PhD, FAASM Diplomat of [place] [employer] Sleep Medicine Board of [place] [employer] Combine Inspector of [facility] [place] ADOLFO / JUAN DIEGO: [id number] /
== END ==
LOC: SLEEP 15:04
PROVIDERS: ATTEND Internal Medicine
DX: G47.419 Narcolepsy without cataplexy (principal); E66.9 Obesity, unspecified; J45.909 Unspecified asthma, uncomplicated; T78.40XA Allergy, unspecified, initial encounter; F32.A Depression, unspecified; F41.9 Anxiety disorder, unspecified; Z90.09 Acquired absence of other part of head and neck

== ENCOUNTER 2023-02-26 07:52 | Emergency (ER) | payer OTHER ==
[2023-02-26 08:38] VITALS: TEMP 98.7
--- NOTE | 2023-02-26 08:40 | ED ---
General Adult HPI - General Chief complaint: Urogenital Stated complaint: Poss UTI, 10 weeks Time Seen by Provider: 02/26/23 08:09 Source: patient, RN notes reviewed Mode of arrival: ambulatory Limitations: no limitations - History of Present Illness Initial comments: 27-year-old female presents emergency Department chief complaint of dysuria. Patient states she's a urinary frequency and painful urination she is currently 10 weeks A0 seen CERTIFIED DIALYSIS TECHNICIAN or [facility]. Patient denies any vaginal bleeding or vaginal discharge. She states she has some achiness in her lower back. Denies any other associated symptoms. - Related Data Home Medications Medication Instructions Recorded Confirmed Budesonide [Pulmicort Flexhaler] 2 puff INHALATION DAILY 06/29/19 07/07/19 Cholecalciferol [Vitamin D3 (25 5,000 units PO DAILY 06/29/19 07/07/19 Mcg = 1000 Iu)] Famotidine 40 mg PO DAILY 06/29/19 07/07/19 Glycopyrrolate [Robinul] 1 mg PO BID 06/29/19 07/07/19 Marlissa 0.15 mg PO DAILY 06/29/19 07/07/19 Montelukast [Singulair] 10 mg PO DAILY 06/29/19 07/07/19 Omeprazole 20 mg PO DAILY 06/29/19 07/07/19 Solriamfetol HCl [Sunosi] 150 mg PO DAILY 06/29/19 07/07/19 Sucralfate [Carafate] 1 gm PO ACHS 06/29/19 07/07/19 Venlafaxine HCl ER [Effexor Xr] 150 mg PO DAILY 06/29/19 07/07/19 buPROPion HCL [Wellbutrin XL] 150 mg PO DAILY 06/29/19 07/07/19 Previous Rx's Medication Instructions Recorded Cephalexin [Keflex] 500 mg PO Q8HR #21 cap 02/26/23 Allergies Allergy/AdvReac Type Severity Reaction Status Date / Time No Known Allergies Allergy Verified 02/26/23 08:08 Review of Systems ROS Statement: Those systems with pertinent positive or pertinent negative responses have been documented in the HPI. ROS Other: All systems not noted in ROS Statement are negative. Past Medical History Past Medical History: Asthma, GERD/Reflux Additional Past Medical History / Comment(s): narcolepsy History of Any Multi-Drug Resistant Organisms: None Reported Past Surgical History: Adenoidectomy Past Anesthesia/Blood Transfusion Reactions: Motion Sickness Past Psychological History: Anxiety, Depression Smoking Status: Never smoker Past Alcohol Use History: None Reported Past Drug Use History: None Reported - Past Family History Father Family Medical History: Cancer Additional Family Medical History / Comment(s): brain cancer General Exam Limitations: no limitations General appearance: alert, in no apparent distress Head exam: Present: atraumatic, normocephalic, normal inspection Eye exam: Present: normal appearance, PERRL, EOMI. Absent: scleral icterus, conjunctival injection, periorbital swelling ENT exam: Present: normal exam, mucous membranes moist Neck exam: Present: normal inspection, full ROM. Absent: tenderness, meningismus, lymphadenopathy Respiratory exam: Present: normal lung sounds bilaterally. Absent: respiratory distress, wheezes, rales, rhonchi, stridor Cardiovascular Exam: Present: regular rate, normal rhythm, normal heart sounds. Absent: systolic murmur, diastolic murmur, rubs, gallop, clicks GI/Abdominal exam: Present: soft, normal bowel sounds. Absent: distended, tenderness, guarding, rebound, rigid Back exam: Absent: CVA tenderness (R), CVA tenderness (L) Course Vital Signs 02/26/23 02/26/23 08:04 08:37 Temperature 98.9 F 98.7 F Pulse Rate 86 75 Respiratory 18 16 Rate Blood Pressure 136/95 122/77 O2 Sat by Pulse 98 100 Oximetry Medical Decision Making - Medical Decision Making Was pt. sent in by a medical professional or institution (, PA, PHTHALIC ACID PURIFIER, urgent care, hospital, or shelter...) When possible be specific @ -No Did you speak to anyone other than the patient for history (EMS, parent, family, police, friend...)? What history was obtained from this source @ -No Did you review nursing and triage notes (agree or disagree)? Why? @ -I reviewed and agree with nursing and triage notes Were old charts reviewed (outside hosp., previous admission, EMS record, old EKG, old radiological studies, urgent care reports/EKG's, shelter records)? Report findings @ -No old charts were reviewed Differential Diagnosis (chest pain, altered mental status, abdominal pain women, abdominal pain men, vaginal bleeding, weakness, fever, dyspnea, syncope, headache, dizziness, GI bleed, back pain, seizure, CVA, palpatations, mental health, musculoskeletal)? @ -Differential Abdominal Pain Women: Appendicitis, Cholecystitis, diverticulosis, ischemic bowel, pancreatitis, hepatitis, UTI, gastroenteritis, AAA, incarcerated hernia, bowel obstruction, constipation, inflammatory bowel, hepatitis, peptic ulcer disease, splenic infarction, perforated viscus, vulvitis, ovarian torsion, PID, kidney stone, placenta abruption, this is not meant to be an all-inclusive list EKG interpreted by me (3pts min.). @ -None X-rays interpreted by me (1pt min.). @ -None done CT interpreted by me (1pt min.). @ -None done U/S interpreted by me (1pt. min.). @ -None done What testing was considered but not performed or refused? (CT, X-rays, U/S, labs)? Why? @ -None What meds were considered but not given or refused? Why? @ -None Did you discuss the management of the patient with other professionals (professionals i.e. , PA, PHTHALIC ACID PURIFIER, lab, RT, psych nurse, social sciences department chair, tool and die supervisor, teacher, first officer, piano case and bench assembler)? Give summary @ -No Was smoking cessation discussed for >3mins.? @ -No Was critical care preformed (if so, how long)? @ -No Were there social determinants of health that impacted care today? How? (Homelessness, low income, unemployed, alcoholism, drug addiction, transportation, low edu. Level, literacy, decrease access to med. care, usp, rehab)? @ -No Was there de-escalation of care discussed even if they declined (Discuss DNR or withdrawal of care, Hospice)? DNR status @ -No What co-morbidities impacted this encounter? (DM, HTN, Smoking, COPD, CAD, Cancer, CVA, ARF, Chemo, Hep., AIDS, mental health diagnosis, sleep apnea, morbid obesity)? @ -None Was patient admitted / discharged? Hospital course, mention meds given and route, prescriptions, significant lab abnormalities, going to OR and other pertinent info. @ -Discharge patient from for dysuria patient does have noted bacteria with and her urinalysis. Patient discharged on Keflex return parameters were discussed. Undiagnosed new problem with uncertain prognosis? @ -No Drug Therapy requiring intensive monitoring for toxicity (Heparin, Nitro, Insulin, Cardizem)? @ -No Were any procedures done? @ -No Diagnosis/symptom? @ -Bacturia in Acute, or Chronic, or Acute on Chronic? @ -acute Uncomplicated (without systemic symptoms) or Complicated (systemic symptoms)? @ -uncomplicated Side effects of treatment? @ -No Exacerbation, Progression, or Severe Exacerbation? @ -No Poses a threat to life or bodily function? How? (Chest pain, [place], [place], pneumonia, PE, COPD, DKA, ARF, appy, cholecystitis, CVA, Diverticulitis, Homicidal, Suicidal, threat to staff... and all critical care pts) @ -No - Lab Data Lab Results 02/26/23 Range/Units 08:30 Urine Color Yellow Urine Appearance Cloudy H (Clear) Urine pH 7.0 (5.0-8.0) Ur Specific [place] 1.030 (1.001-1.035) Urine Protein 1+ H (Negative) Urine Glucose (UA) Negative (Negative) Urine Ketones Negative (Negative) Urine Blood Negative (Negative) Urine Nitrite Negative (Negative) Urine Bilirubin Negative (Negative) Urine Urobilinogen <2.0 (<2.0) mg/dL Ur Leukocyte Esterase Trace H (Negative) Urine RBC 1 (0-5) /hpf Urine WBC 5 (0-5) /hpf Ur Squamous Epith Cells 19 H (0-4) /hpf Urine Bacteria Moderate H (None) /hpf Urine Mucus Few H (None) /hpf Disposition Clinical Impression: Asymptomatic bacteriuria during Disposition: HOME SELF-CARE Condition: Stable Instructions (If sedation given, give patient instructions): Urinary Tract Infection in Women (ED) Additional Instructions: Please return to the Emergency Department if symptoms worsen or any other concerns. Prescriptions: Cephalexin [Keflex] 500 mg PO Q8HR #21 cap Is patient prescribed a controlled substance at d/c from ED?: No Referrals: Vinod Reyes MD [Primary Care Provider] - 1-2 days Time of Disposition: 09:13
[2023-02-26 09:03] LABS: Appearance,Urine Cloudy (Clear); Bacteria,Urine Moderate /hpf; Bilirubin,Urine Negative (Negative); Blood,Urine Negative (Negative); Glucose,Urine (UA) Negative (Negative); Ketones,Urine Negative (Negative); Leukocyte Esterase,Urine Trace (Negative); Mucus,Urine Few /hpf; Nitrite,Urine Negative (Negative); Protein,Urine 1+ (Negative); RBC,Urine 1 /hpf (0-5); Squamous Epithelial Cell,Urine 19 /hpf (0-4); Urobilinogen,Urine <2.0 mg/dL (<2.0); WBC,Urine 5 /hpf (0-5)
[2023-02-26 09:04] LABS: Color,Urine Yellow
[2023-02-26 09:14] VITALS: BP 125/79; PULSE 80; RESP 17
== END 2023-02-26 09:27 | disposition home or self-care (01) ==
LOC: EC 07:52
DX: O23.91 Unspecified genitourinary tract infection in pregnancy, first trimester (principal); R82.71 Bacteriuria; O99.511 Diseases of the respiratory system complicating pregnancy, first trimester; J45.909 Unspecified asthma, uncomplicated; O99.611 Diseases of the digestive system complicating pregnancy, first trimester; K21.9 Gastro-esophageal reflux disease without esophagitis; O99.341 Other mental disorders complicating pregnancy, first trimester; F32.A Depression, unspecified; F41.9 Anxiety disorder, unspecified; Z3A.10 10 weeks gestation of pregnancy; Z79.51 Long term (current) use of inhaled steroids; Z79.899 Other long term (current) drug therapy
CPT/HCPCS: 81001; 99283

== ENCOUNTER 2023-07-16 15:53 | Emergency (ER) | payer BC, OTHER ==
--- NOTE | 2023-07-16 16:42 | ED ---
General Adult HPI - General Source: patient, RN notes reviewed Mode of arrival: ambulatory Limitations: no limitations <Jada Greenberg - Last Filed: 07/16/23 16:40> - General Source: RN notes reviewed, old records reviewed Limitations: no limitations - History of Present Illness -: hour(s) Radiation: non-radiation Consistency: constant Improves with: none Associated Symptoms: loss of appetite, nausea/vomiting, weakness Treatments Prior to Arrival: none <Da Dickey - Last Filed: 07/26/23 00:07> - General Stated complaint: NVD-30 weeks preg Time Seen by Provider: 07/16/23 16:40 - History of Present Illness Initial comments: 27 year old female presents to the emergency department for nausea, vomiting, diarrhea x1 day. She reports muscle aches and fatigue over the past 2-3 days. Patient states that she is 30 weeks . She follow at [facility]. Denies vaginal bleeding. (Jada Greenberg) This is a 27 female to the ED with complaints of NVD, she is 30 weeks this is the first pregnancies [facility]. Patient has no significant abdominal pain here in the emergency department. No dysuria or , No fevers.vaginal bleeding. Just nausea vomiting. (Da Dickey) - Related Data Home Medications Medication Instructions Recorded Confirmed Budesonide [Pulmicort Flexhaler] 2 puff INHALATION DAILY 06/29/19 07/07/19 Cholecalciferol [Vitamin D3 (25 5,000 units PO DAILY 06/29/19 07/07/19 Mcg = 1000 Iu)] Famotidine 40 mg PO DAILY 06/29/19 07/07/19 Glycopyrrolate [Robinul] 1 mg PO BID 06/29/19 07/07/19 Marlissa 0.15 mg PO DAILY 06/29/19 07/07/19 Montelukast [Singulair] 10 mg PO DAILY 06/29/19 07/07/19 Omeprazole 20 mg PO DAILY 06/29/19 07/07/19 Solriamfetol HCl [Sunosi] 150 mg PO DAILY 06/29/19 07/07/19 Sucralfate [Carafate] 1 gm PO ACHS 06/29/19 07/07/19 Venlafaxine HCl ER [Effexor Xr] 150 mg PO DAILY 06/29/19 07/07/19 buPROPion HCL [Wellbutrin XL] 150 mg PO DAILY 06/29/19 07/07/19 Previous Rx's Medication Instructions Recorded Cephalexin [Keflex] 500 mg PO Q8HR #21 cap 02/26/23 Allergies Allergy/AdvReac Type Severity Reaction Status Date / Time No Known Allergies Allergy Verified 07/16/23 17:05 Review of Systems ROS Other: All systems not noted in ROS Statement are negative. <Jada Greenberg - Last Filed: 07/16/23 16:40> ROS Other: All systems not noted in ROS Statement are negative. <Da Dickey - Last Filed: 07/26/23 00:07> ROS Statement: Those systems with pertinent positive or pertinent negative responses have been documented in the HPI. Past Medical History Past Medical History: Asthma, GERD/Reflux Additional Past Medical History / Comment(s): narcolepsy History of Any Multi-Drug Resistant Organisms: None Reported Past Surgical History: Adenoidectomy Past Anesthesia/Blood Transfusion Reactions: Motion Sickness Past Psychological History: Anxiety, Depression Smoking Status: Never smoker Past Alcohol Use History: None Reported Past Drug Use History: None Reported - Past Family History Father Family Medical History: Cancer Additional Family Medical History / Comment(s): brain cancer <Jada Greenberg - Last Filed: 07/16/23 16:40> General Exam <Jada Greenberg - Last Filed: 07/16/23 16:40> General appearance: alert, in no apparent distress Head exam: Present: atraumatic, normocephalic, normal inspection Eye exam: Present: normal appearance, PERRL, EOMI. Absent: scleral icterus, conjunctival injection, periorbital swelling ENT exam: Present: normal exam, mucous membranes moist Neck exam: Present: normal inspection. Absent: tenderness, meningismus, lymphadenopathy Respiratory exam: Present: normal lung sounds bilaterally. Absent: respiratory distress, wheezes, rales, rhonchi, stridor Cardiovascular Exam: Present: regular rate, normal rhythm, normal heart sounds. Absent: systolic murmur, diastolic murmur, rubs, gallop, clicks GI/Abdominal exam: Present: soft, normal bowel sounds. Absent: distended, tenderness, guarding, rebound, rigid Extremities exam: Present: normal inspection, full ROM, normal capillary refill. Absent: tenderness, pedal edema, joint swelling, calf tenderness Back exam: Present: normal inspection Neurological exam: Present: alert, oriented X3, CN II-XII intact Psychiatric exam: Present: normal affect, normal mood Skin exam: Present: warm, dry, intact, normal color. Absent: rash <Da Dickey - Last Filed: 07/26/23 00:07> - General Exam Comments Initial Comments: Visual Physical Exam Vital signs reviewed General: Well-appearing, nontoxic, no acute distress. Head: Normocephalic, atraumatic Eyes: PERRLA, EOMI ENT: Airway patent Chest: Nonlabored breathing Skin: No visual rash, normal skin tone Neuro: Alert and oriented 3 Musculoskeletal: No gross abnormalities (Jada Greenberg) Course <Da Dickey - Last Filed: 07/26/23 00:07> Vital Signs 07/16/23 07/16/23 07/16/23 17:03 22:00 22:45 Temperature 98 F 98.2 F Pulse Rate 121 H 98 Respiratory 20 18 Rate Blood Pressure 108/72 106/74 O2 Sat by Pulse 98 98 Oximetry - Reevaluation(s) Reevaluation #1: 07/16/23 21:55 medical record is reviewed (Da Dickey) Reevaluation #2: 07/16/23 21:55 patient symptoms are improved here in the ER with no active vomiting (Da Dickey) Reevaluation #3: 07/16/23 21:55 informed results questions are answered (Da Dickey) Reevaluation #4: Was pt. sent in by a medical professional or institution (, PA, PATIENT FINANCIAL REP, urgent care, hospital, or residential...) When possible be specific @ -no Did you speak to anyone other than the patient for history (EMS, parent, family, police, friend...)? What history was obtained from this source @ -no Did you review nursing and triage notes (agree or disagree)? Why? @ -agree Are old charts reviewed (outside hosp., previous admission, EMS record, old EKG, old radiological studies, urgent care reports/EKG's, residential records)? Report findings @ -yes Differential Diagnosis (chest pain, altered mental status, abdominal pain women, abdominal pain men, vaginal bleeding, weakness, fever, dyspnea, syncope, headache, dizziness, GI bleed, back pain, seizure, CVA, palpatations, mental health, musculoskeletal)? @ -prior EKG interpreted by me (3pts min.). @ -no X-rays interpreted by me (1pt min.). @ -no CT interpreted by me (1pt min.). @ -no U/S interpreted by me (1pt. min.). @ -no What testing was considered but not performed or refused? (CT, X-rays, U/S, labs)? Why? @ -none What meds were considered but not given or refused? Why? @ -none Did you discuss the management of the patient with other professionals (professionals i.e. , PA, PATIENT FINANCIAL REP, lab, RT, psych nurse, social media senior associate, log chain worker, teacher, property and supply officer, case operator)? Give summary @ -no Was smoking cessation discussed for >3mins.? @ -no Was critical care preformed (if so, how long)? @ -no Were there social determinants of health that impacted care today? How? (Homelessness, low income, unemployed, alcoholism, drug addiction, transportation, low edu. Level, literacy, decrease access to med. care, fdc, rehab)? @ -none Was there de-escalation of care discussed even if they declined (Discuss DNR or withdrawal of care, Hospice)? DNR status @ -no What co-morbidities impacted this encounter? (DM, HTN, Smoking, COPD, CAD, Cancer, CVA, ARF, Chemo, Hep., AIDS, mental health diagnosis, sleep apnea, morbid obesity)? @ -none Was patient admitted / discharged? Hospital course, mention meds given and route, prescriptions, significant lab abnormalities, going to OR and other pertinent info. @ - 27 female to the emergency department for evaluation of nausea vomiting and diarrhea for about 12 to 24 hrs. now. Improved after reevaluation here in the emergency department a increasedthroughout her emergency department stay. Discharge Undiagnosed new problem with uncertain prognosis? @ -no Drug Therapy requiring intensive monitoring for toxicity (Heparin, Nitro, Insulin, Cardizem)? @ -no Were any procedures done? @ -no Diagnosis/symptom? @ -Nausea vomiting diarrhea Acute, or Chronic, or Acute on Chronic? @ -Acute Uncomplicated (without systemic symptoms) or Complicated (systemic symptoms)? @ -Complicated Side effects of treatment? @ -no Exacerbation, Progression, or Severe Exacerbation? @ -exacerbation Poses a threat to life or bodily function? How? (Chest pain, [place], VA, pneumonia, PE, COPD, DKA, ARF, appy, cholecystitis, CVA, Diverticulitis, Homicidal, Suicidal, threat to staff... and all critical care pts) @ -yes (Da Dickey) Reevaluation #5: 07/16/23 21:55 Differential Abdominal Pain Women: Appendicitis, Cholecystitis, diverticulosis, ischemic bowel, pancreatitis, hepatitis, UTI, gastroenteritis, AAA, incarcerated hernia, bowel obstruction, constipation, inflammatory bowel, hepatitis, peptic ulcer disease, splenic infarction, perforated viscus, vulvitis, ovarian torsion, PID, kidney stone, placenta abruption, this is not meant to be an all-inclusive list (Da Dickey) Medical Decision Making <Jada Greenberg - Last Filed: 07/16/23 16:40> - Lab Data Result diagrams: 07/16/23 17:18 07/16/23 17:18 <Da Dickey - Last Filed: 07/26/23 00:07> - Medical Decision Making Quick note preformed by Jada Greenberg PA-C (Jada Greenberg) 27 female to the emergency department for evaluation of nausea vomiting and diarrhea for about 12 to 24 hrs. now. Improved after reevaluation here in the emergency department a increasedthroughout her emergency department stay. (Da Dickey) - Lab Data Lab Results 07/16/23 07/16/23 07/16/23 Range/Units 17:18 17:18 17:18 WBC 14.6 H (3.8-10.6) k/uL RBC 4.32 (3.80-5.40) m/uL Hgb 13.5 (11.4-16.0) gm/dL Hct 40.4 (34.0-46.0) % MCV 93.4 (80.0-100.0) fL MCH 31.2 (25.0-35.0) pg MCHC 33.4 (31.0-37.0) g/dL RDW 13.0 (11.5-15.5) % Plt Count 210 (150-450) k/uL MPV 7.7 Neutrophils % 92 % Lymphocytes % 5 % Monocytes % 2 % Eosinophils % 1 % Basophils % 0 % Neutrophils # 13.4 H (1.3-7.7) k/uL Lymphocytes # 0.7 L (1.0-4.8) k/uL Monocytes # 0.3 (0-1.0) k/uL Eosinophils # 0.1 (0-0.7) k/uL Basophils # 0.0 (0-0.2) k/uL Sodium 137 (137-145) mmol/L Potassium 4.1 (3.5-5.1) mmol/L Chloride 104 (98-107) mmol/L Carbon Dioxide 20 L (22-30) mmol/L Anion Gap 13 mmol/L BUN 9 (7-17) mg/dL Creatinine 0.52 (0.52-1.04) mg/dL Est GFR (CKD-EPI)AfAm >90 (>60 ml/min/1.73 sqM) Est GFR (CKD-EPI)NonAf >90 (>60 ml/min/1.73 sqM) Glucose 81 (74-99) mg/dL Calcium 8.6 (8.4-10.2) mg/dL Total Bilirubin 0.5 (0.2-1.3) mg/dL AST 29 (14-36) U/L ALT 25 (4-34) U/L Alkaline Phosphatase 94 (38-126) U/L Total Protein 6.7 (6.3-8.2) g/dL Albumin 3.5 (3.5-5.0) g/dL Amylase 97 (30-110) U/L Lipase 104 (23-300) U/L Urine Color Urine Appearance (Clear) Urine pH (5.0-8.0) Ur Specific [place] (1.001-1.035) Urine Protein (Negative) Urine Glucose (UA) (Negative) Urine Ketones (Negative) Urine Blood (Negative) Urine Nitrite (Negative) Urine Bilirubin (Negative) Urine Urobilinogen (<2.0) mg/dL Ur Leukocyte Esterase (Negative) Influenza Type A (PCR) Not Detected (Not Detectd) Influenza Type B (PCR) Not Detected (Not Detectd) RSV (PCR) Not Detected (Not Detectd) SARS-CoV-2 (PCR) Not Detected (Not Detectd) 07/16/23 Range/Units 22:42 WBC (3.8-10.6) k/uL RBC (3.80-5.40) m/uL Hgb (11.4-16.0) gm/dL Hct (34.0-46.0) % MCV (80.0-100.0) fL MCH (25.0-35.0) pg MCHC (31.0-37.0) g/dL RDW (11.5-15.5) % Plt Count (150-450) k/uL MPV Neutrophils % % Lymphocytes % % Monocytes % % Eosinophils % % Basophils % % Neutrophils # (1.3-7.7) k/uL Lymphocytes # (1.0-4.8) k/uL Monocytes # (0-1.0) k/uL Eosinophils # (0-0.7) k/uL Basophils # (0-0.2) k/uL Sodium (137-145) mmol/L Potassium (3.5-5.1) mmol/L Chloride (98-107) mmol/L Carbon Dioxide (22-30) mmol/L Anion Gap mmol/L BUN (7-17) mg/dL Creatinine (0.52-1.04) mg/dL Est GFR (CKD-EPI)AfAm (>60 ml/min/1.73 sqM) Est GFR (CKD-EPI)NonAf (>60 ml/min/1.73 sqM) Glucose (74-99) mg/dL Calcium (8.4-10.2) mg/dL Total Bilirubin (0.2-1.3) mg/dL AST (14-36) U/L ALT (4-34) U/L Alkaline Phosphatase (38-126) U/L Total Protein (6.3-8.2) g/dL Albumin (3.5-5.0) g/dL Amylase (30-110) U/L Lipase (23-300) U/L Urine Color Light Yellow Urine Appearance Clear (Clear) Urine pH 6.0 (5.0-8.0) Ur Specific [place] 1.017 (1.001-1.035) Urine Protein Trace H (Negative) Urine Glucose (UA) Negative (Negative) Urine Ketones 4+ H (Negative) Urine Blood Negative (Negative) Urine Nitrite Negative (Negative) Urine Bilirubin Negative (Negative) Urine Urobilinogen <2.0 (<2.0) mg/dL Ur Leukocyte Esterase Negative (Negative) Influenza Type A (PCR) (Not Detectd) Influenza Type B (PCR) (Not Detectd) RSV (PCR) (Not Detectd) SARS-CoV-2 (PCR) (Not Detectd) Disposition <Jada Greenberg - Last Filed: 07/16/23 16:40> Is patient prescribed a controlled substance at d/c from ED?: No Time of Disposition: 22:30 <Da Dickey - Last Filed: 07/26/23 00:07> Clinical Impression: Dehydration, Gastroenteritis, Nausea and vomiting Disposition: ADMITTED IP TO THIS HOSP Condition: Good Instructions (If sedation given, give patient instructions): Acute Nausea and Vomiting (ED) Referrals: Vinod Reyes MD [Primary Care Provider] - 1-2 days
[2023-07-16 17:35] LABS: Basophils % (A) 0 %; Eosinophils # (A) 0.1 k/uL (0-0.7); Eosinophils % (A) 1 %; HCT 40.4 % (34.0-46.0); HGB 13.5 gm/dL (11.4-16.0); Lymphocytes # (A) 0.7 k/uL (1.0-4.8); Lymphocytes % (A) 5 %; MCH 31.2 pg (25.0-35.0); MCHC 33.4 g/dL (31.0-37.0); MCV 93.4 fL (80.0-100.0); Mean Platelet Volume 7.7; Monocytes # (A) 0.3 k/uL (0-1.0); Monocytes % (A) 2 %; Neutrophils # (A) 13.4 k/uL (1.3-7.7); Neutrophils % (A) 92 %; Platelet Count 210 k/uL (150-450); RBC 4.32 m/uL (3.80-5.40); WBC 14.6 k/uL (3.8-10.6)
[2023-07-16 17:49] LABS: ALT 25 U/L (4-34); AST 29 U/L (14-36); African American GFR (CKD) >90 (>60 ml/min/1.73 sqM); Albumin 3.5 g/dL (3.5-5.0); Alkaline Phosphatase 94 U/L (38-126); Amylase 97 U/L (30-110); Anion Gap 13 mmol/L; Blood Urea Nitrogen 9 mg/dL (7-17); Calcium 8.6 mg/dL (8.4-10.2); Carbon Dioxide 20 mmol/L (22-30); Chloride 104 mmol/L (98-107); Glucose 81 mg/dL (74-99); Lipase 104 U/L (23-300); Non-African American GFR(CKD) >90 (>60 ml/min/1.73 sqM); Potassium 4.1 mmol/L (3.5-5.1); Sodium 137 mmol/L (137-145); Total Bilirubin 0.5 mg/dL (0.2-1.3); Total Protein 6.7 g/dL (6.3-8.2)
[2023-07-16] MEDS ORDERED: SODIUM CHLORIDE 0.9% 1,000 ML IV ONE (19:37)
[2023-07-16] MEDS ORDERED: ONDANSETRON 4 MG/2 ML VIAL IVP STA (19:37)
[2023-07-16] MEDS ORDERED: ONDANSETRON 4 MG ODT STARTER PACK 2 TAB BTL PO STA (21:51)
[2023-07-16] MEDS ORDERED: ACETAMINOPHEN IV (For NPO) 1,000 MG in EMPTY BAG 1 BAG IVPB STA (21:51)
[2023-07-16] MEDS ORDERED: SODIUM CHLORIDE 0.9% 1,000 ML IV STA (21:51)
[2023-07-16 22:37] LABS: Appearance,Urine Clear (Clear); Bilirubin,Urine Negative (Negative); Blood,Urine Negative (Negative); Color,Urine Light Yellow; Glucose,Urine (UA) Negative (Negative); Ketones,Urine 4+ (Negative); Leukocyte Esterase,Urine Negative (Negative); Nitrite,Urine Negative (Negative); Protein,Urine Trace (Negative); Specific Gravity,Urine 1.017 (1.001-1.035); Urobilinogen,Urine <2.0 mg/dL (<2.0)
[2023-07-16 22:57] VITALS: BP 106/74; PULSE 98; RESP 18; TEMP 98.2
== END 2023-07-16 22:45 | disposition other institution (70) ==
LOC: EC 15:53
DX: O99.613 Diseases of the digestive system complicating pregnancy, third trimester (principal); K52.9 Noninfective gastroenteritis and colitis, unspecified; O99.283 Endocrine, nutritional and metabolic diseases complicating pregnancy, third trimester; E86.0 Dehydration; O99.513 Diseases of the respiratory system complicating pregnancy, third trimester; J45.909 Unspecified asthma, uncomplicated; K21.9 Gastro-esophageal reflux disease without esophagitis; O99.343 Other mental disorders complicating pregnancy, third trimester; F32.A Depression, unspecified; F41.9 Anxiety disorder, unspecified; Z3A.30 30 weeks gestation of pregnancy; Z20.822 Contact with and (suspected) exposure to COVID-19; Z79.51 Long term (current) use of inhaled steroids; Z79.899 Other long term (current) drug therapy
CPT/HCPCS: 36415; 80053; 82150; 83690; 85025; 81003; 87636; 99285; 96365; 96375; 96361 ×2; J2405; J0131; S0119

== ENCOUNTER → 2024-02-02 | Outpatient (CLI) | payer BC ==
--- NOTE | 2024-02-02 18:08 | US ---
EXAMINATION TYPE: US pelvis complete transvag DATE OF EXAM: 02/02/2024 COMPARISON: Pelvic ultrasound 01/18/2018 CLINICAL INDICATION: Female, 28 years old with history of R102 PELVIC PAIN; Abnormal periods since de livering baby x 3 month. TECHNIQUE: Transvaginal (TV) and Transabdominal (TA) . Transabdominal sonographic images of the pel vis were acquired. Transvaginal sonographic images were medically necessary to better assess the fol lowing anatomy: Endometrium Date of LMP: 01/28/2024, EXAM MEASUREMENTS: Uterus: 7.0 x 4.4 x 3.0 cm Endometrial Stripe: 0.2 cm Right Ovary: 3.1 x 1.8 x 1.7 cm Left Ovary: 3.2 x 1.6 x 1.7 cm 1. Uterus: Anteverted Slightly heterogenous. 2. Endometrium: wnl 3. Right Ovary: follicles seen 4. Left Ovary: follicle seen 5. Bilateral Adnexa: wnl 6. Posterior cul-de-sac: no free fluid Anteverted slightly heterogenous uterus without focal lesion identified. Endometrium is within normal limits. Both ovaries are unremarkable with follicles demonstrated. No free fluid. IMPRESSION: No ultrasound evidence for acute process.
== END | disposition home or self-care (01) ==
LOC: RADUSWWP 15:17
PROVIDERS: ATTEND Family Medicine
DX: R10.2 Pelvic and perineal pain (principal)
CPT/HCPCS: 76830; 76856

== ENCOUNTER → 2024-03-16 | Outpatient (CLI) | payer BC ==
[2024-03-16 17:03] VITALS: BP 101/79; PULSE 77; RESP 16; TEMP 98.2
--- NOTE | 2024-03-16 17:16 | P.PROGSL ---
Subjective DATE: 03/16/2024 FOLLOW UP VISIT. Patient returned to sleep center for follow-up visit related to treatment of significant excessive daytime sleepiness secondary to narcolepsy. Patient was on treatment with Adderall 10 mg up to 2 times per day. Presently patient stopped to using Adderall because she was and now she is breast- feeding. Patient continued to feel sleepiness. [place] sleepiness scale is 17. MEDICATIONS: Please see below During physical exam: GENERAL: A pleasant patient without any distress. VITAL SIGNS: Please see below. HEENT: PERRLA, EOMI. NECK: Supple. No JVD. LUNGS: Clear to percussion and to auscultation. Good air exchange. No wheezing or rhonchi. HEART: S1, S2 regular. ABDOMEN: Soft and nontender. EXTREMITIES: No clubbing or cyanosis. COMPUTER BUILDER: Awake, alert, and oriented x3. No focal deficit. Impressions: 1. Narcolepsy, type I 2. Patient doing breast-feeding for show child. 3. Asthma. 4. Allergy. 5. History of depression. 6. History of anxiety. 7. Status post adenoidectomy. 8. Obesity, BMI 44.6, patient increased her weight on 5 pounds comparing with previous visit. Plan: 1. Patient will continue treatment with Adderall after she will stopped breast- feeding. 2. Sleep hygiene with regular time in bed for at least 8 hours. 3. Daytime naps permitted and recommended now while she is not on Adderall. 4. Precautions related to driving. No driving if feel any sleepiness. Patient is aware about civil and criminal liability for unsafe driving, promised to follow recommendations. 5. Follow up visit in 4-6 months or earlier if patient has any problems. Thank you very much for allowing me to participate in the management of your patient. Colton Moscoso MD, PhD, FAASM. Diplomat of [place] Board of [employer] Medicine, Sleep Medicine Board by [place] [employer] of [employer] Medicine [employer] [facility] [place] Objective - Vital Signs Vital Signs: Vital Signs Temp 98.2 F 03/16/24 17:02 Pulse 77 03/16/24 17:02 Resp 16 03/16/24 17:02 BP 101/79 03/16/24 17:02 Pulse Ox 98 03/16/24 17:02 FiO2 Intake & Output 09/11/0203/16/24 03/16/24 18:59 06:59 18:59 Weight 122.016 kg Home Medications: Home Medications Medication Instructions Recorded Confirmed Type Montelukast [Singulair] 10 mg PO DAILY 06/29/19 03/16/24 History Omeprazole 20 mg PO DAILY 06/29/19 03/16/24 History Albuterol Inhaler [Ventolin Hfa 1 - 2 puff INHALATION Q6H PRN 03/16/24 03/16/24 History Inhaler] Fluticasone Propionate 110 Mcg 03/16/24 History [Flovent 110 Mcg Inhaler]
== END ==
LOC: 3 N SLEEP 16:15
PROVIDERS: ATTEND Internal Medicine
CPT/HCPCS: 99212